=== PATIENT | male | born 1975 | race Caucasian/White ===

== ENCOUNTER 2016-10-03 15:31 | Inpatient (IN) | payer BC, OTHER ==
[~2016-10-03] VITALS: Ht 188 cm; Wt 80.0 kg
[2016-10-03 15:36] VITALS: BP 124/73; PULSE 110; RESP 17; TEMP 99.4; O2SAT 98
[2016-10-03] MEDS ORDERED: SODIUM CHLOR 0.9% 1000 ML INJ 1,000 ML IV ONE (20:09)
[2016-10-03] MEDS ORDERED: KETOROLAC TROMETHAMINE 30 MG/ML (IVP) VIAL IV PUSH ONE (20:15)
--- NOTE | 2016-10-03 20:42 | RADRPT ---
EXAM DATE/TIME: 10/03/2016 20:23 [place] COMPARISON: No previous studies available for comparison. INDICATIONS : Short of breath. MEDICAL HISTORY : None. SURGICAL HISTORY : None. ENCOUNTER: Initial ACUITY: 1 week PAIN SCORE: 0/10 LOCATION: Bilateral chest FINDINGS: A single view of the chest demonstrates the lungs to be symmetrically aerated without evidence of mas s, infiltrate or effusion. The cardiomediastinal contours are unremarkable. Osseous structures are intact. There is mild S. shaped thoracolumbar curvature noted. CONCLUSION: No evidence of acute cardiopulmonary disease.Scoliosis. Lit Hall MD on October 03, 2016 at 20:40 Board Certified Radiologist. This report was verified electronically.
[2016-10-03] MEDS ORDERED: AMLO10TA2 PO (20:46)
[2016-10-03] MEDS ORDERED: TRAM50TA PO (20:46)
[2016-10-03] MEDS ORDERED: LISI10TA3 PO (20:46)
[2016-10-03] MEDS ORDERED: AZIT500T2 PO (20:47)
[2016-10-03 21:21] LABS: HEMATOCRIT 38.7 % (39.0-51.0); MEAN CELL VOLUME 92.5 FL (80.0-100.0); MEAN CORPUSCULAR HEMOGLOBIN 31.2 PG (27.0-34.0); MEAN CORPUSCULAR HGB CONC 33.7 % (32.0-36.0); PLATELET COUNT 105 TH/MM3 (150-450); RED BLOOD COUNT 4.18 MIL/MM3 (4.50-5.90); RED CELL DISTRIBUTION WIDTH 13.5 % (11.6-17.2); WHITE BLOOD COUNT 8.1 TH/MM3 (4.0-11.0)
[2016-10-03 21:25] LABS: HEMO FLAGS AUTO DIFF
[2016-10-03 21:33] LABS: ANION GAP 10 MEQ/L (5-15); AST (GOT) 170 U/L (15-37); BICARBONATE 24.5 MEQ/L (21.0-32.0); BLOOD UREA NITROGEN 32 MG/DL (7-18); CHLORIDE 94 MEQ/L (98-107); GLOMERULAR FILTRATION RATE 22 ML/MIN (>89); POTASSIUM 3.3 MEQ/L (3.5-5.1); SODIUM (NA) 128 MEQ/L (136-145)
[2016-10-03 21:35] LABS: ALT (GPT) 187 U/L (12-78)
[2016-10-03 21:36] LABS: ALKALINE PHOSPHATASE 210 U/L (45-117); TOTAL BILIRUBIN ADULT 0.8 MG/DL (0.2-1.0)
[2016-10-03] MEDS ORDERED: SODIUM CHLOR 0.9% 1000 ML INJ 1,000 ML IV SCH (21:41)
[2016-10-03 21:43] LABS: BLOOD, URINE SMALL (NEG); GLUCOSE,URINE NEG (NEG); KETONE, URINE NEG (NEG); NITRITE,URINE NEG (NEG); PH, URINE 5.5 (5.0-8.5); URINE COLOR YELLOW (YELLW/STRAW)
[2016-10-03 21:44] LABS: COMMENT (UR) CATH-CULT NOT IND; CULTURE IF INDICATED CATH CULTURE NOT IND
[2016-10-03 22:05] VITALS: BP 128/76; PULSE 100; RESP 18; O2SAT 97
[2016-10-03 22:14] LABS: BANDS 24 % (0-6); EOSINOPHILS 1 % (0-4); METAMYELOCYTES 1 % (0-1); NEUTROPHIL # MANUAL DIFF 6.6 TH/MM3 (1.8-7.7); POLYS (SEG NEUTROPHILS) 57 % (16-70); WBC DIFF SAMPLE 100
[2016-10-03 22:15] LABS: TOXIC GRANULATION 1+ (NORMAL)
[2016-10-03] MEDS ORDERED: SENNOSIDES 8.6 MG TAB PO PRN (22:15)
[2016-10-03] MEDS ORDERED: BISACODYL 10 MG SUPP RECTAL PRN (22:15)
[2016-10-03] MEDS ORDERED: LACTULOSE SYRUP 20 GM/30 ML CUP PO PRN (22:15)
[2016-10-03] MEDS ORDERED: SODIUM CHLORIDE 0.9% FLUSH 10 ML FLUSH IV FLUSH PRN (22:15)
[2016-10-03] MEDS ORDERED: MAGNESIUM HYDROXIDE SUSP 30 ML CUP PO PRN (22:15)
[2016-10-03] MEDS ORDERED: MORPHINE SULFATE 4 MG/ML INJ IV PRN (22:15)
[2016-10-03] MEDS ORDERED: ONDANSETRON HCL 4 MG/2 ML VIAL IVP PRN (22:15)
[2016-10-03 22:16] LABS: DOHLE BODIES PRESENT (NONE SEEN)
--- NOTE | 2016-10-03 22:16 | HHI.HP ---
HPI Service [facility] Primary Care Physician Albert Pittman, DO Admission Diagnosis acute kidney failure, elevated LFTs, viral illness Diagnoses: (1) SIRS (systemic inflammatory response syndrome) Diagnosis: Principal (2) Gastroenteritis Diagnosis: Principal (3) DALLIN (acute kidney injury) Diagnosis: Principal (4) Thrombocytopenia Diagnosis: Principal (5) Elevated LFTs Diagnosis: Principal Travel History International Travel<30 Days: No Contact w/Intl Traveler <30 Da: No Traveled to Known Affected Are: No History of Present Illness This is a 40-year-old male with PMH of HTN who presented to the ER with complaints of fever and intermittent nausea, vomiting and diarrhea for approx 6 days. States he went on a family trip to [facility] 2wks ago, returned home feeling fine however 8 days after arrival had sudden onset of episodic fever, states fever occurring every 5-6hrs despite taking Tylenol. Reports night sweats. Few episodes of nausea/vomiting at start of symptoms, now resolved. Reports multiple episodes of small amount of diarrhea per day, non-bloody. Decreased PO intake. Of note, family member who went to [facility] with him currently hospitalized in [place] for similar symptoms. On arrival, BP 124/73, HR 110, O2 sat 98% on RA, Temp 99.4. WBC 8.1. Hemoglobin 13. Platelet 105, bandemia 24%. K+ 3.3. Creatinine 3.16, no previous labs for comparison. Lactic Acid 1.1. AST 170, ALT 187, ALP 210. Lipase 71. UA negative for UTI. CXR with no acute findings. S/p Blood/Stool Cultures in ER. Review of Systems Except as stated in HPI: all other systems reviewed are Neg ROS: 14 point review of systems otherwise negative. Past Family Social History Past Medical History PMH: HTN Past Surgical History PAST SURGICAL HISTORY: None Allergies: Coded Allergies: amoxicillin (Unverified Allergy, Mild, Hives, 10/03/16) Family History PAST FAMILY HISTORY: Reviewed. No h/o DM or CAD Social History PAST SOCIAL HISTORY: Negative frock all, tobacco or drugs. Physical Exam Vital Signs Vital Signs Date Time Temp Pulse Resp B/P (MAP) Pulse Ox O2 Delivery O2 Flow Rate FiO2 10/03/16 15:36 99.4 110 17 124/73 (90) 98 Physical Exam PE: GENERAL: Very pleasant young white male in no acute distress. at bedside. HEENT: PERRLA, EOMI. No scleral icterus or conjunctival pallor. No lid lag or facial droop. CARDIOVASCULAR: Regular rate and rhythm. No obvious murmurs to auscultation. No chest tenderness to palpation. RESPIRATORY: No obvious rhonchi or wheezing. Clear to auscultation. Breath sounds equal bilaterally. GASTROINTESTINAL: Abdomen soft, non-tender, nondistended. BS normal. MUSCULOSKELETAL: Extremities without clubbing, cyanosis, or edema. No obvious deformities. NEUROLOGICAL: Awake, alert and oriented x4. No focal neurologic deficits. Moving both upper and lower extremities spontaneously. Laboratory Laboratory Tests Test 10/03/16 21:01 10/03/16 21:20 White Blood Count 8.1 Red Blood Count 4.18 Hemoglobin 13.0 Hematocrit 38.7 Mean Corpuscular Volume 92.5 Mean Corpuscular Hemoglobin 31.2 Mean Corpuscular Hemoglobin Concent 33.7 Red Cell Distribution Width 13.5 Platelet Count 105 Mean Platelet Volume 8.7 CBC Comment AUTO DIFF Blood Urea Nitrogen 32 Creatinine 3.16 Random Glucose 131 Total Protein 7.1 Albumin 2.8 Calcium Level 8.3 Alkaline Phosphatase 210 Aspartate Amino Transf (AST/SGOT) 170 Alanine Aminotransferase (ALT/SGPT) 187 Total Bilirubin 0.8 Sodium Level 128 Potassium Level 3.3 Chloride Level 94 Carbon Dioxide Level 24.5 Anion Gap 10 Estimat Glomerular Filtration Rate 22 Lactic Acid Level 1.1 Lipase 71 Urine Color YELLOW Urine Turbidity CLOUDY Urine pH 5.5 Urine Specific [place] 1.013 Urine Protein 100 Urine Glucose (UA) NEG Urine Ketones NEG Urine Occult Blood SMALL Urine Nitrite NEG Urine Bilirubin NEG Urine Urobilinogen LESS THAN 2.0 Urine Leukocyte Esterase NEG Urine RBC 1 Urine WBC 6 Urine Amorphous Sediment RARE Microscopic Urinalysis Comment CATH-CULT NOT IND Date/Time Source Procedure Growth Status 10/03/16 21:01 Blood Peripheral Aerobic Blood Culture Pending Received 10/03/16 21:01 Blood Peripheral Anaerobic Blood Culture Pending Received 10/03/16 22:00 Stool Stool Acid Fast Stain Pending Received 10/03/16 22:00 Stool Stool Mycobacterial Culture Pending Received 10/03/16 21:01 Nasal Washing Influenza Types A,B Antigen (DESEAN) - Final NEGATIVE FOR FLU A AND B ANTIGEN.... Complete Result Diagram: 10/03/16210010/03/162100 [facility] VTE Risk Assessment: No/Low Risk (score <= 1) [facility] Model Point Value = 1 Point Value = 2 Point Value = 3 Point Value = 5 Age 41-60 Minor surgery BMI > 25 kg/m2 Swollen legs Varicose veins or History of unexplained or recurrent spontaneous Oral contraceptives or hormone replacement Sepsis (< 1 month) Serious lung disease, including pneumonia (< 1 month) Abnormal pulmonary function Acute myocardial infarction Congestive heart failure (< 1 month) History of inflammatory bowel disease Medical patient at bed rest Age 61-74 Arthroscopic surgery Major open surgery (> 45 min) Laparoscopic surgery (> 45 min) Malignancy Confined to bed (> 72 hours) Immobilizing plaster cast Central venous access Age >= 75 History of VTE Family history of VTE Factor V Leiden Prothrombin [id number] Lupus anticoagulant Anticardiolipin antibodies Elevated serum homocysteine Heparin-induced thrombocytopenia Other congenital or acquired thrombophilia Stroke (< 1 month) Elective arthroplasty Hip, pelvis, or leg fracture Acute spinal cord injury (< 1 month) Prophylaxis Regimen Total Risk Factor Score Risk Level Prophylaxis Regimen 0-1 Low Early ambulation 2 Moderate Order ONE of the following: *Sequential Compression Device (SCD) *Heparin 5000 units SQ BID 3-4 Higher Order ONE of the following medications: *Heparin 5000 units SQ TID *Enoxaparin/Lovenox 40 mg SQ daily (WT < 150 kg, CrCl > 30 mL/min) *Enoxaparin/Lovenox 30 mg SQ daily (WT < 150 kg, CrCl > 10-29 mL/min) *Enoxaparin/Lovenox 30 mg SQ BID (WT < 150 kg, CrCl > 30 mL/min) AND/OR *Sequential Compression Device (SCD) 5 or more Highest Order ONE of the following medications: *Heparin 5000 units SQ TID (Preferred with Epidurals) *Enoxaparin/Lovenox 40 mg SQ daily (WT < 150 kg, CrCl > 30 mL/min) *Enoxaparin/Lovenox 30 mg SQ daily (WT < 150 kg, CrCl > 10-29 mL/min) *Enoxaparin/Lovenox 30 mg SQ BID (WT < 150 kg, CrCl > 30 mL/min) AND *Sequential Compression Device (SCD) Assessment and Plan Problem List: (1) SIRS (systemic inflammatory response syndrome) ICD Code: R65.10 - Systemic inflammatory response syndrome (SIRS) of non- infectious origin without acute organ dysfunction (2) Gastroenteritis ICD Code: K52.9 - Noninfective gastroenteritis and colitis, unspecified (3) DALLIN (acute kidney injury) ICD Code: N17.9 - Acute kidney failure, unspecified (4) Thrombocytopenia ICD Code: D69.6 - Thrombocytopenia, unspecified (5) Elevated LFTs ICD Code: R79.89 - Other specified abnormal findings of blood chemistry Status: Acute Assessment and Plan A/P: 1. SIRS: Fever at home up to 103.0, Temp 99.4, HR 110, WBC normal however significant bandemia 24%, Source-Unclear, Gastroenteritis?. S/p Blood/Stool Cultures. Start on empiric tx w/ Cipro/Flagyl IV. Recent travel to [facility] , family member hospitalized in [place] for similar symptoms. ID Consult placed by ER physician. 2. Gastroenteritis: c/o few episodes nausea/vomiting and daily non-bloody diarrhea x1 wk, +fever, in light of ongoing symptoms and significant bandemia, will start on empiric treatment w/ IV Cipro/Flagyl as above. Obtain CT Abd/ Pelvis if no improvement, abdomen benign on exam 3. DALLIN: Creatinine 3.16, no previous labs for comparison, presumably new. U/ a negative, IVF for hydration, repeat labs in am. 4. Thrombocytopenia: Platelets 105, no previous labs, presumably new. ?ITP. No active bleeding. Will monitor closely, repeat labs in am. 5. Elevated LFTs: Mild. AST 170, ALT 187, ALP 210, check Hepatitis Profile. Repeat labs for trend. 6. DVT Prophylaxis: SCD/Teds. 7. Social work for d/c planning as needed. 8. Case discussed w/ ER physician at length. Physician Certification 2 Midnight Certification Type: Admission for Inpatient Services Order for Inpatient Services The services are ordered in accordance with Medicare regulations or non- Medicare payer requirements, as applicable. In the case of services not specified as inpatient-only, they are appropriately provided as inpatient services in accordance with the 2-midnight benchmark. Estimated LOS (days): 2 days is the estimated time the patient will need to remain in the hospital, assuming treatment plan goals are met and no additional complications. Post-Hospital Plan: Not yet determined Juju Fulton MD Oct 03, 2016 22:15
[2016-10-03 22:17] LABS: TOXIC VACUOLATION PRESENT (NONE SEEN)
[2016-10-03 22:18] LABS: PLATELET ESTIMATE SMEAR LOW (NORMAL); PLATELET MORPHOLOGY NORMAL (NORMAL)
[2016-10-03 22:20] LABS: SCAN/DIFF FINAL DIFF MANUAL
--- NOTE | 2016-10-03 22:20 | PD ---
HPI Chief Complaint: Fever Time Seen by Provider: 20:00 Travel History International Travel<30 days: No Contact w/Intl Traveler<30days: No Traveled to known affect area: No History of Present Illness HPI 40-year-old male that presents to the ED for evaluation of fever for the past 6 days. Per patient he is had this fever for about 6 days. Per patient he recently came back from [facility] about 2 weeks ago. Per patient she's been having diarrhea as well as fevers with body aches and some congestion and sore throat. Per patient he has to take her medication every 3 hours to help with the fever on the body aches otherwise he gets really bad body aches. Per patient he has no neck pain. Mild cough. Per patient and there is a friend that also went to [facility] that was just admitted a day ago to another hospital in [place] for evaluation of what he describes as the similar symptoms. He denies being in contact with anybody sick. He denies any other medical issue. Per patient he takes no medications other than azithromycin which was prescribed by his doctor a couple days ago when he went to see him. He was told that he likely had a viral illness and was given azithromycin to cover for bacterial illness. Allergy to amoxicillin. States that the bowel movements are liquidy but he states that he also has no appetite so he states that his bowel movements have been less and less. Per patient his stools have been very small. He denies any chest pain or shortness of breath. No other medical issues reported. PFSH Social History Tobacco Use: No Substance Use: No Allergies-Medications (Allergen,Severity, Reaction): Coded Allergies: amoxicillin (Unverified Allergy, Mild, Hives, 10/03/16) Reported Meds & Prescriptions Reported Meds & Active Scripts Active Reported Azithromycin 500 Mg Tab 500 Mg PO DAILY Amlodipine (Amlodipine Besylate) 10 Mg Tab 10 Mg PO DAILY Lisinopril 10 Mg Tab 10 Mg PO DAILY Tramadol (Tramadol HCl) 50 Mg Tab 50 Mg PO Q8H PRN Review of Systems Except as stated in HPI: all other systems reviewed are Neg Physical Exam Narrative GENERAL: SKIN: Warm and dry. HEAD: Atraumatic. Normocephalic. EYES: Pupils equal and round. No scleral icterus. No injection or drainage. ENT: No nasal bleeding or discharge. Mucous membranes pink and moist. Tongue is midline. No uvula deviation. TMs are clear with no sign of infection or perforation. No lymphadenopathy noted. No meningeal signs noted. No sinus tenderness noted. NECK: Trachea midline. No JVD. CARDIOVASCULAR: Tachycardic rate and rhythm. No murmurs, S3, S4. RESPIRATORY: No accessory muscle use. Clear to auscultation. Breath sounds equal bilaterally. GASTROINTESTINAL: Abdomen soft, non-tender, nondistended. Hepatic and splenic margins not palpable. MUSCULOSKELETAL: Extremities without clubbing, cyanosis, or edema. No obvious deformities. Full range of motion of the upper and lower extremities bilaterally. 2+ pulses bilaterally. NEUROLOGICAL: Awake and alert. No obvious cranial nerve deficits. Motor grossly within normal limits. Five out of 5 muscle strength in the arms and legs. Normal speech. PSYCHIATRIC: Appropriate mood and affect; insight and judgment normal. Data Data Last Documented VS Vital Signs Date Time Temp Pulse Resp B/P (MAP) Pulse Ox O2 Delivery O2 Flow Rate FiO2 10/03/16 15:36 99.4 110 17 124/73 (90) 98 Orders Orders Complete Blood Count With Diff (10/03/16 20:09) Comprehensive Metabolic Panel (10/03/16 20:09) Lactic Acid Sepsis Protocol (10/03/16 20:09) Lipase (10/03/16 20:09) Urinalysis - C+S If Indicated (10/03/16 20:09) Influenzae A/B Antigen (10/03/16 20:09) Blood Culture (10/03/16 20:09) Chest, Single Ap (10/03/16 20:09) Ecg Monitoring (10/03/16 20:09) Iv Access Insert/Monitor (10/03/16 20:09) Sodium Chlor 0.9% 1000 Ml Inj (Ns 1000 M (10/03/16 20:09) Stool Afb Culture And Stain (10/03/16 20:09) Ketorolac Inj (Toradol Inj) (10/03/16 20:15) Stool Ova And Parasite Screen (10/03/16 21:41) Sodium Chlor 0.9% 1000 Ml Inj (Ns 1000 M (10/03/16 21:41) Admit Order (Ed Use Only) (10/03/16 22:10) Labs Laboratory Tests Test 10/03/16 21:01 10/03/16 21:20 White Blood Count 8.1 TH/MM3 Red Blood Count 4.18 MIL/MM3 Hemoglobin 13.0 GM/DL Hematocrit 38.7 % Mean Corpuscular Volume 92.5 FL Mean Corpuscular Hemoglobin 31.2 PG Mean Corpuscular Hemoglobin Concent 33.7 % Red Cell Distribution Width 13.5 % Platelet Count 105 TH/MM3 Mean Platelet Volume 8.7 FL CBC Comment AUTO DIFF Blood Urea Nitrogen 32 MG/DL Creatinine 3.16 MG/DL Random Glucose 131 MG/DL Total Protein 7.1 GM/DL Albumin 2.8 GM/DL Calcium Level 8.3 MG/DL Alkaline Phosphatase 210 U/L Aspartate Amino Transf (AST/SGOT) 170 U/L Alanine Aminotransferase (ALT/SGPT) 187 U/L Total Bilirubin 0.8 MG/DL Sodium Level 128 MEQ/L Potassium Level 3.3 MEQ/L Chloride Level 94 MEQ/L Carbon Dioxide Level 24.5 MEQ/L Anion Gap 10 MEQ/L Estimat Glomerular Filtration Rate 22 ML/MIN Lactic Acid Level 1.1 mmol/L Lipase 71 U/L Urine Color YELLOW Urine Turbidity CLOUDY Urine pH 5.5 Urine Specific [place] 1.013 Urine Protein 100 mg/dL Urine Glucose (UA) NEG mg/dL Urine Ketones NEG mg/dL Urine Occult Blood SMALL Urine Nitrite NEG Urine Bilirubin NEG Urine Urobilinogen LESS THAN 2.0 MG/DL Urine Leukocyte Esterase NEG Urine RBC 1 /hpf Urine WBC 6 /hpf Urine Amorphous Sediment RARE Microscopic Urinalysis Comment CATH-CULT NOT IND MDM Medical Decision Making Medical Screen Exam Complete: Yes Emergency Medical Condition: Yes Medical Record Reviewed: Yes Interpretation(s) CBC & BMP Diagram 10/03/16 21:01 Total Protein 7.1, Albumin 2.8 L, Calcium Level 8.3 L, Alkaline Phosphatase 210 H, Aspartate Amino Transf (AST/SGOT) 170 H, Alanine Aminotransferase (ALT/SGPT) 187 H, Total Bilirubin 0.8 lactic acid within normal limits. UA were essentially unremarkable. CXR negative Differential Diagnosis Fever versus tropical illness versus hepatitis versus see Versus dengue versus kidney injury versus dehydration versus viral illness versus bacterial illness versus pneumonia Narrative Course 40-year-old male that presents to the ED for evaluation of fever for 6 days. Patient was properly examined and was found to have signs and symptoms of unclear etiology. Likely viral illness. Labs were drawn. Chest x-ray was done. Flu test was done. Labs came back showing what appears to be acute kidney failure with elevated LFTs. WBCs actually within normal limits with no left shift. She does state having diarrhea and stool studies are still pending. We'll test was negative. Case was discussed in my attending Dr. Sanchez who recommends admission for the acute kidney failure. Case was discussed with Dr. Fulton who agrees to admission. Patient was given 2 L of fluid by me. I put a consult to ID as patient will require further testing to evaluate cause of the fever so suspect this might be a tropical illness versus hepatitis Sepsis Criteria SIRS Criteria (2 or more): Heart rate over 90 Diagnosis Primary Impression: Acute kidney failure Qualified Codes: N17.9 - Acute kidney failure, unspecified Additional Impressions: Elevated LFTs Fever Qualified Codes: R50.9 - Fever, unspecified Admitting Information Admitting Physician Requests: Admit Emmanuel Mcclelland Oct 03, 2016 22:20
[2016-10-03] MEDS: SODIUM CHLOR 0.9% 1000 ML INJ 1,000 ML IV SCH (22:48)
[2016-10-03 23:00] VITALS: BP 118/70; PULSE 90; RESP 14; O2SAT 100
[2016-10-03] MEDS ORDERED: CIPROFLOXACIN 400 MG PREMIX 200 ML IV SCH (23:00)
[2016-10-04] VITALS (8 sets, daily range): BP systolic 109–151; BP diastolic 61–77; PULSE 88–112; RESP 16–18; TEMP 98.5–102.4; O2SAT 96–99
[2016-10-04] MEDS: metroNIDAZOLE 500 MG INJ 100 ML IV SCH ×4 (00:01→23:00)
[2016-10-04] MEDS: ACETAMINOPHEN 325 MG TAB PO PRN ×3 (01:59→13:40)
[2016-10-04] MEDS: ACETAMINOPHEN/HYDROcodone 325 MG/5 MG TAB PO PRN ×3 (02:01→21:24)
[2016-10-04] MEDS: DOCUSATE SODIUM 50 MG/SENNA 8.6 MG TAB PO SCH ×2 (08:24→21:24)
[2016-10-04] MEDS: SODIUM CHLORIDE 0.9% FLUSH 10 ML FLUSH IV FLUSH SCH ×2 (08:24→21:00)
[2016-10-04 08:52] LABS: AUTOMATED NEUTROPHIL # 5.8 TH/MM3 (1.8-7.7); BASOPHIL % 0.3 % (0.0-2.0); EOSINOPHIL % 0.7 % (0.0-4.0); HEMO FLAGS DIFF FINAL; LYMPH % 4.2 % (9.0-44.0); LYMPHOCYTE # 0.3 TH/MM3 (1.0-4.8); MEAN CELL VOLUME 94.8 FL (80.0-100.0); MEAN CORPUSCULAR HEMOGLOBIN 31.8 PG (27.0-34.0); MEAN CORPUSCULAR HGB CONC 33.5 % (32.0-36.0); MONO % 16.2 % (0.0-8.0); NEUT % 78.6 % (16.0-70.0); PLATELET COUNT 106 TH/MM3 (150-450); RED BLOOD COUNT 4.11 MIL/MM3 (4.50-5.90); RED CELL DISTRIBUTION WIDTH 13.4 % (11.6-17.2); WHITE BLOOD COUNT 7.4 TH/MM3 (4.0-11.0)
[2016-10-04 08:56] LABS: ALT (GPT) 192 U/L (12-78)
[2016-10-04 08:58] LABS: ALKALINE PHOSPHATASE 238 U/L (45-117); ANION GAP 11 MEQ/L (5-15); AST (GOT) 181 U/L (15-37); BICARBONATE 22.2 MEQ/L (21.0-32.0); CHLORIDE 99 MEQ/L (98-107); GLOMERULAR FILTRATION RATE 25 ML/MIN (>89); POTASSIUM 3.5 MEQ/L (3.5-5.1); SODIUM (NA) 132 MEQ/L (136-145); TOTAL BILIRUBIN ADULT 1.4 MG/DL (0.2-1.0)
[2016-10-04 09:05] LABS: BLOOD UREA NITROGEN 32 MG/DL (7-18)
--- NOTE | 2016-10-04 11:50 | HHI.PR ---
Subjective Remarks This is a 40-year-old male with PMH of HTN who presented to the ER with complaints of fever and intermittent nausea, vomiting and diarrhea for approx 6 days. States he went on a family trip to [facility] 2wks ago, returned home feeling fine however 8 days after arrival had sudden onset of episodic fever, states fever occurring every 5-6hrs despite taking Tylenol. Reports night sweats. Few episodes of nausea/vomiting at start of symptoms, now resolved. Reports multiple episodes of small amount of diarrhea per day, non-bloody. Decreased PO intake. Of note, family member who went to [facility] with him currently hospitalized in [place] for similar symptoms. On arrival, BP 124/73, HR 110, O2 sat 98% on RA, Temp 99.4. WBC 8.1. Hemoglobin 13. Platelet 105, bandemia 24%. K+ 3.3. Creatinine 3.16, no previous labs for comparison. Lactic Acid 1.1. AST 170, ALT 187, ALP 210. Lipase 71. UA negative for UTI. CXR with no acute findings. S/p Blood/Stool Cultures in ER. 10/04: Seen in his bedroom, slight decrease in Creatinine with IV fluids, asked for Renal Ultrasound and Nephrology specialist consult, discussed with ID specialist Doctor Denisse Moore she was concerned due to Thrombocytopenia and increased Liver enzymes, she discussed with manpower development specialist manager but considered to wait and follow Platelet count in am tomorrow, he continue with Diarrhea asked for C Diff and Stool for ova and parasites. Objective Vital Signs Date Time Temp Pulse Resp B/P (MAP) Pulse Ox O2 Delivery O2 Flow Rate FiO2 10/04/16 08:00 102.2 105 17 151/77 (101) 98 10/04/16 04:00 98.8 88 18 125/72 (89) 97 10/04/16 02:30 99.0 91 18 119/68 (85) 98 10/04/16 00:09 89 16 130/68 (88) 99 10/03/16 23:00 90 14 118/70 (86) 100 10/03/16 22:05 100 18 128/76 (93) 97 10/03/16 15:36 99.4 110 17 124/73 (90) 98 I/O 10/03/16 10/03/16 10/03/16 10/04/16 10/04/1610/04/17 06:59 14:59 22:59 06:59 14:59 22:59 Intake Total 1000 ml 1200 ml Balance 1000 ml 1200 ml Intake IV Total 1000 ml 1200 ml Result Diagram: 10/04/16 0600 10/04/16 0652 Imaging Last Impressions Chest X-Ray 10/03/162008 Signed Impressions: Service Date/Time: Monday, October 03, 2016 20:23 - CONCLUSION: No evidence of acute cardiopulmonary disease.Scoliosis. Lit Hall MD Procedures None Other Results Laboratory Tests Test 10/03/16 21:01 10/03/16 21:20 10/04/16 06:00 10/04/16 06:52 Differential Total Cells Counted 100 Neutrophils % (Manual) 57 % Band Neutrophils % 24 % Lymphocytes % 9 % Monocytes % 8 % Eosinophils % 1 % Neutrophils # (Manual) 6.6 TH/MM3 Metamyelocytes 1 % Toxic Granulation 1+ Toxic Vacuolation PRESENT Dohle Bodies PRESENT Platelet Estimate LOW Platelet Morphology Comment NORMAL Lactic Acid Level 1.1 mmol/L Lipase 71 U/L Urine Color YELLOW Urine Turbidity CLOUDY Urine pH 5.5 Urine Specific [place] 1.013 Urine Protein 100 mg/dL Urine Glucose (UA) NEG mg/dL Urine Ketones NEG mg/dL Urine Occult Blood SMALL Urine Nitrite NEG Urine Bilirubin NEG Urine Urobilinogen LESS THAN 2.0 MG/DL Urine Leukocyte Esterase NEG Urine RBC 1 /hpf Urine WBC 6 /hpf Urine Amorphous Sediment RARE Microscopic Urinalysis Comment CATH-CULT NOT IND White Blood Count 7.4 TH/MM3 Red Blood Count 4.11 MIL/MM3 Hemoglobin 13.1 GM/DL Hematocrit 39.0 % Mean Corpuscular Volume 94.8 FL Mean Corpuscular Hemoglobin 31.8 PG Mean Corpuscular Hemoglobin Concent 33.5 % Red Cell Distribution Width 13.4 % Platelet Count 106 TH/MM3 Mean Platelet Volume 10.2 FL Neutrophils (%) (Auto) 78.6 % Lymphocytes (%) (Auto) 4.2 % Monocytes (%) (Auto) 16.2 % Eosinophils (%) (Auto) 0.7 % Basophils (%) (Auto) 0.3 % Neutrophils # (Auto) 5.8 TH/MM3 Lymphocytes # (Auto) 0.3 TH/MM3 Monocytes # (Auto) 1.2 TH/MM3 Eosinophils # (Auto) 0.0 TH/MM3 Basophils # (Auto) 0.0 TH/MM3 CBC Comment DIFF FINAL Differential Comment Blood Urea Nitrogen 32 MG/DL Creatinine 2.88 MG/DL Random Glucose 100 MG/DL Total Protein 6.9 GM/DL Albumin 2.6 GM/DL Calcium Level 8.0 MG/DL Alkaline Phosphatase 238 U/L Aspartate Amino Transf (AST/SGOT) 181 U/L Alanine Aminotransferase (ALT/SGPT) 192 U/L Total Bilirubin 1.4 MG/DL Sodium Level 132 MEQ/L Potassium Level 3.5 MEQ/L Chloride Level 99 MEQ/L Carbon Dioxide Level 22.2 MEQ/L Anion Gap 11 MEQ/L Estimat Glomerular Filtration Rate 25 ML/MIN Test 10/04/16 11:24 Objective Remarks PE: No acute distress. GENERAL: Very pleasant young white male in no acute distress. at bedside. HEENT: PERRLA, EOMI. No scleral icterus or conjunctival pallor. No lid lag or facial droop. CARDIOVASCULAR: Regular rate and rhythm. No obvious murmurs to auscultation. No chest tenderness to palpation. RESPIRATORY: No obvious rhonchi or wheezing. Clear to auscultation. Breath sounds equal bilaterally. GASTROINTESTINAL: Abdomen soft, non-tender, nondistended. BS normal. MUSCULOSKELETAL: Extremities without clubbing, cyanosis, or edema. No obvious deformities. NEUROLOGICAL: Awake, alert and oriented x4. No focal neurologic deficits. Moving both upper and lower extremities spontaneously. Medications and IVs Current Medications Medications (Trade) Dose Ordered Sig/Néstor Route Start Time Stop Time Status Last Admin Ciprofloxacin/ Dextrose 200 ml @ 200 mls/hr Q24H IV 10/03/16 23:00 10/03/16 22:48 Metronidazole 100 ml @ 100 mls/hr Q8H IV 10/03/16 23:00 10/04/16 06:20 Sodium Chloride 1,000 ml @ 150 mls/hr Q6H40M IV 10/03/16 22:09 10/03/16 22:48 (NS Flush) 2 ml UNSCH PRN IV FLUSH 10/03/16 22:15 (NS Flush) 2 ml BID IV FLUSH 10/04/16 09:00 10/04/16 08:24 (Zofran Inj) 4 mg Q6H PRN IVP 10/03/16 22:15 (Tylenol) 650 mg Q6H PRN PO 10/03/16 22:15 10/04/16 08:24 ([place] 5-325 Mg) 1 tab Q4H PRN PO 10/03/16 22:15 10/04/16 02:01 (Morphine Inj) 2 mg Q3H PRN IV 10/03/16 22:15 (Gladys-Colace) 1 tab BID PO 10/04/16 09:00 (Milk Of Magnesia Liq) 30 ml Q12H PRN PO 10/03/16 22:15 (Senokot) 17.2 mg Q12H PRN PO 10/03/16 22:15 (Dulcolax Supp) 10 mg DAILY PRN RECTAL 10/03/16 22:15 (Lactulose Liq) 30 ml DAILY PRN PO 10/03/16 22:15 A/P Assessment and Plan 1. SIRS: Fever at home up to 103.0, Temp 99.4, HR 110, WBC normal however significant bandemia 24%, Source-Unclear, Gastroenteritis?. S/p Blood/Stool Cultures. Start on empiric tx w/ Cipro/Flagyl IV. Recent travel to [facility], family member hospitalized in [place] for similar symptoms. 2. DALLIN: Creatinine 3.16, Mild improvement with IV fluids, asked for Kidney Ultrasound and Nephrology consult. 3. Thrombocytopenia: Platelets 105, no previous labs, discussed by Doctor Moore with manpower development specialist manager not yet found the need for his intervention continuep resent care. 4. Elevated LFTs: Mildly worse today. DVT Prophylaxis: SCD/Teds. I had the pleasure to talk with Infectious Disease Specialist Doctor Denisse Moore for her Input and recommendations Highly appreciated. Discharge Planning Not yet cleared by specialists. Chong Burgos MD Oct 04, 2016 11:50
--- NOTE | 2016-10-04 15:25 | PD.CONS ---
HPI Service Nephrology Consult Requested By Dr. Ornelas Reason for Consult Acute renal failure Primary Care Physician Albert Pittman, DO History of Present Illness Patient is a 40-year-old male who had a recent trip to [facility] and developed diarrhea at first it was not too bad but then he developed nausea and vomiting and diarrhea with fever and came with these complaints, his creatinine was elevated 3.16 but has declined to 2.8 with hydration, he denies any previous kidney problems. His LFTs were abnormal platelet is slightly depressed. Review of Systems Constitutional: COMPLAINS OF: Fever, Night Sweats Gastrointestinal: COMPLAINS OF: Abdominal pain, Diarrhea, Nausea, Vomiting Past Family Social History Allergies: Coded Allergies: amoxicillin (Unverified Allergy, Mild, Hives, 10/03/16) Past Medical History He states that he has on and off diarrhea Hypertension Past Surgical History On exam Reported Medications Reported Meds & Active Scripts Active Reported Azithromycin 500 Mg Tab 500 Mg PO DAILY Amlodipine (Amlodipine Besylate) 10 Mg Tab 10 Mg PO DAILY Lisinopril 10 Mg Tab 10 Mg PO DAILY Tramadol (Tramadol HCl) 50 Mg Tab 50 Mg PO Q8H PRN Active Ordered Medications Current Medications Medications (Trade) Dose Ordered Sig/Néstor Route Start Time Stop Time Status Last Admin Ciprofloxacin/ Dextrose 200 ml @ 200 mls/hr Q24H IV 10/03/16 23:00 10/03/16 22:48 Metronidazole 100 ml @ 100 mls/hr Q8H IV 10/03/16 23:00 10/04/16 06:20 Sodium Chloride 1,000 ml @ 150 mls/hr Q6H40M IV 10/03/16 22:09 10/03/16 22:48 (NS Flush) 2 ml UNSCH PRN IV FLUSH 10/03/16 22:15 (NS Flush) 2 ml BID IV FLUSH 10/04/16 09:00 10/04/16 08:24 (Zofran Inj) 4 mg Q6H PRN IVP 10/03/16 22:15 (Tylenol) 650 mg Q6H PRN PO 10/03/16 22:15 10/04/16 13:40 ([place] 5-325 Mg) 1 tab Q4H PRN PO 10/03/16 22:15 10/04/16 02:01 (Morphine Inj) 2 mg Q3H PRN IV 10/03/16 22:15 (Gladys-Colace) 1 tab BID PO 10/04/16 09:00 (Milk Of Magnesia Liq) 30 ml Q12H PRN PO 10/03/16 22:15 (Senokot) 17.2 mg Q12H PRN PO 10/03/16 22:15 (Dulcolax Supp) 10 mg DAILY PRN RECTAL 10/03/16 22:15 (Lactulose Liq) 30 ml DAILY PRN PO 10/03/16 22:15 Family History Noncontributory Social History Denies smoking he drinks socially Physical Exam Vital Signs Vital Signs Date Time Temp Pulse Resp B/P (MAP) Pulse Ox O2 Delivery O2 Flow Rate FiO2 10/04/16 12:00 98.5 95 17 118/76 (90) 99 10/04/16 08:00 102.2 105 17 151/77 (101) 98 10/04/16 04:00 98.8 88 18 125/72 (89) 97 10/04/16 02:30 99.0 91 18 119/68 (85) 98 10/04/16 00:09 89 16 130/68 (88) 99 10/03/16 23:00 90 14 118/70 (86) 100 10/03/16 22:05 100 18 128/76 (93) 97 10/03/16 15:36 99.4 110 17 124/73 (90) 98 Physical Exam GENERAL: Well-nourished, well-developed patient. SKIN: Warm and dry. HEAD: Normocephalic. EYES: No scleral icterus. No injection or drainage. NECK: Supple, trachea midline. No JVD or lymphadenopathy. CARDIOVASCULAR: Regular rate and rhythm without murmurs, gallops, or rubs. RESPIRATORY: Breath sounds equal bilaterally. No accessory muscle use. GASTROINTESTINAL: Abdomen soft, non-tender, nondistended. EXTREMITIES: No cyanosis, or edema. NEUROLOGICAL: Awake, alert, and oriented x 3. Non-focal. Laboratory Laboratory Tests Test 10/03/16 21:01 10/03/16 21:20 10/04/16 06:00 10/04/16 06:52 White Blood Count 8.1 7.4 Red Blood Count 4.18 4.11 Hemoglobin 13.0 13.1 Hematocrit 38.7 39.0 Mean Corpuscular Volume 92.5 94.8 Mean Corpuscular Hemoglobin 31.2 31.8 Mean Corpuscular Hemoglobin Concent 33.7 33.5 Red Cell Distribution Width 13.5 13.4 Platelet Count 105 106 Mean Platelet Volume 8.7 10.2 CBC Comment AUTO DIFF DIFF FINAL Differential Total Cells Counted 100 Neutrophils % (Manual) 57 Band Neutrophils % 24 Lymphocytes % 9 Monocytes % 8 Eosinophils % 1 Neutrophils # (Manual) 6.6 Metamyelocytes 1 Differential Comment FINAL DIFF MANUAL Toxic Granulation 1+ Toxic Vacuolation PRESENT Dohle Bodies PRESENT Platelet Estimate LOW Platelet Morphology Comment NORMAL Blood Urea Nitrogen 32 32 Creatinine 3.16 2.88 Random Glucose 131 100 Total Protein 7.1 6.9 Albumin 2.8 2.6 Calcium Level 8.3 8.0 Alkaline Phosphatase 210 238 Aspartate Amino Transf (AST/SGOT) 170 181 Alanine Aminotransferase (ALT/SGPT) 187 192 Total Bilirubin 0.8 1.4 Sodium Level 128 132 Potassium Level 3.3 3.5 Chloride Level 94 99 Carbon Dioxide Level 24.5 22.2 Anion Gap 10 11 Estimat Glomerular Filtration Rate 22 25 Lactic Acid Level 1.1 Lipase 71 Urine Color YELLOW Urine Turbidity CLOUDY Urine pH 5.5 Urine Specific [place] 1.013 Urine Protein 100 Urine Glucose (UA) NEG Urine Ketones NEG Urine Occult Blood SMALL Urine Nitrite NEG Urine Bilirubin NEG Urine Urobilinogen LESS THAN 2.0 Urine Leukocyte Esterase NEG Urine RBC 1 Urine WBC 6 Urine Amorphous Sediment RARE Microscopic Urinalysis Comment CATH-CULT NOT IND Neutrophils (%) (Auto) 78.6 Lymphocytes (%) (Auto) 4.2 Monocytes (%) (Auto) 16.2 Eosinophils (%) (Auto) 0.7 Basophils (%) (Auto) 0.3 Neutrophils # (Auto) 5.8 Lymphocytes # (Auto) 0.3 Monocytes # (Auto) 1.2 Eosinophils # (Auto) 0.0 Basophils # (Auto) 0.0 Test 10/04/16 11:24 10/04/16 13:00 Date/Time Source Procedure Growth Status 10/03/16 21:01 Blood Peripheral Aerobic Blood Culture - Preliminary NO GROWTH IN 1 DAY Resulted 10/03/16 21:01 Blood Peripheral Anaerobic Blood Culture - Preliminary NO GROWTH IN 1 DAY Resulted 10/04/16 13:00 Stool Stool Cyclospora Exam Pending Received 10/04/16 13:00 Stool Stool Cryptosporidium Exam Pending Received 10/04/16 13:00 Stool Stool Stool Pus (DESEAN) Pending Received 10/04/16 13:00 Stool Stool Giardia Antigen (DEESAN) Pending Received 10/03/16 21:01 Nasal Washing Influenza Types A,B Antigen (DESEAN) - Final NEGATIVE FOR FLU A AND B ANTIGEN.... Complete 10/04/16 13:00 Urine Random Urine Legionella Antigen Pending Received Result Diagram: 10/04/16 0600 10/04/16 0652 Imaging Last Impressions Chest X-Ray 10/03/162008 Signed Impressions: Service Date/Time: Monday, October 03, 2016 20:23 - CONCLUSION: No evidence of acute cardiopulmonary disease.Scoliosis. Lit Hall MD Assessment and Plan Problem List: (1) DALLIN (acute kidney injury) ICD Codes: N17.9 - Acute kidney failure, unspecified Plan: He does not have any evidence of anemia or RBCs in the urine, this is likely prerenal dehydration which is responding to fluids his creatinine already has declined, I do not find evidence for hemolysis at this stage, moreover high grade fever points to infective etiology along with abnormal LFT, check reti counts, LDH, follow sedrate At this point observation Supportive care Look for infective etiology E coli, S. typhi, Hep A (2) Fever ICD Codes: R50.9 - Fever, unspecified Status: Acute Plan: Continue supportive care (3) Thrombocytopenia ICD Codes: D69.6 - Thrombocytopenia, unspecified Plan: Likely infective etiology (4) Elevated LFTs ICD Codes: R79.89 - Other specified abnormal findings of blood chemistry Status: Acute Plan: Hepatitis screen is pending Problem Qualifiers (1) Fever: Qualified Codes: R50.9 - Fever, unspecified Matias Medina MD Oct 04, 2016 15:25
[2016-10-04 15:39] LABS: C. DIFF EPI 027 PRESUMPTIVE NEGATIVE (NEGATIVE)
--- NOTE | 2016-10-04 16:33 | RADRPT ---
EXAM DATE/TIME: 10/04/2016 15:57 [facility] COMPARISON: No previous studies available for comparison. INDICATIONS : Increased lab values. MEDICAL HISTORY : Hypertension. Two herniated disks in lower back. SURGICAL HISTORY : None. ENCOUNTER: Initial ACUITY: 2 weeks PAIN SCORE: 1/10 LOCATION: Bilateral flank MEASUREMENTS: RIGHT KIDNEY: 12.9 x 6.1 x 6.1 cm LEFT KIDNEY: 12.2 x 6.0 x 6.0 cm FINDINGS: Incidental note of fatty infiltration of the liver. RIGHT KIDNEY: Renal cortex is normal in thickness and echotexture. No hydronephrosis, stone, or mass. LEFT KIDNEY: Renal cortex is normal in thickness and echotexture. No hydronephrosis, stone, or m ass. BLADDER: Within normal limits given the degree of distension. CONCLUSION: Fatty infiltration of the liver. Normal evaluation of the kidneys and bladder. Juliette Castillo MD on October 04, 2016 at 16:30 Board Certified Radiologist. This report was verified electronically.
--- NOTE | 2016-10-04 16:37 | PD.ID.CON ---
History of Present Illness Service ID Consult Requested By / residents. Reason for Consult Evaluation and Mment of Fever in a traveller with diarrhea, abnormal LFTs and Acute renal failure. Primary Care Physician Albert Pittman DO Diagnoses: History of Present Illness Mr. Canchola is a 40-year-old male with past medical history significant for hypertension, herniated disc who recently traveled to [facility] between September 11, 2016 and September 19, 2016. While in [facility] patient was involved in many outdoor activities such as surfing, exploring the mountains , exploring the trails, Swimming in the water pools below waterfalls. He denies any history of animal bites. He reports having seen some monkeys but was not exposed to any of them. He denies any history of travel into caves. Patient reports he went on a family trip to [facility] and there were several kids ranging in age from 7-17, and about 6-7 adults. Patient reports that approximately some at least 7-8 people from his vacation trip all of these are family members ended up having diarrhea. Diarrhea resolved for most of them. He additionally reports that one of the family members is currently admitted at one of the [facility]. He believes that the physician for that family member has informed him that patient could have dengue. The patient at other hospital does not have any renal or liver function abnormalities. He goes on to report his girl friend has fevers and possibly diarrhea now. With this background patient now presents to the emergency department with complaints of fever, diarrhea for approximately 7 days. He reports a history of high-grade fevers associated with chills and rigors and periods of sweating. He reports that after a period of prolonged sweating his fevers do resolve. He reports aggressively hydrating himself with 2-3 gallons of water but despite that his urine is very yellow and at times very dark-colored. He denies any blood in the urine or any tea-colored urine. He reports taking Tylenol regularly. Patient reports about 7-8 times small amounts of diarrhea with no blood no tenesmus. He reports aches and pains as well as myalgia but denies any bone pain. He reports night sweats. He reports one episode where he had nausea and vomiting this was approximately one week back. He reports decreased appetite altered taste in the mouth. Denies any loss of weight. On arrival, BP 124/73, HR 110, O2 sat 98% on RA, Temp 99.4. WBC 8.1. Hemoglobin 13. Platelet 105, bandemia 24%. K+ 3.3. Creatinine 3.16, no previous labs for comparison. Lactic Acid 1.1. AST 170, ALT 187, ALP 210. Lipase 71. UA negative for UTI. CXR with no acute findings. S/p Blood/Stool Cultures in ER. At the time of my evaluation patient is currently on the floor. He had taken his shirt/top off because he had a profuse sweating episode a few minutes back. Otherwise patient appeared to be in no cardiopulmonary distress denied any pains. He did report periods of myalgia and high-grade fevers.He denies any bone pains. He denies any headache, retro-orbital pain or neck pain. Urine output is good. He continues to have large volume diarrhea. Travel: None in last 5 yrs prior to [facility] most recently. Medication use prior to admission: Tylenol 4-5 gm per day for 6 days. Dayquil 4 times a day for few days (Tylenol, Phenylephrine, Dextromethorphan) Pets: 2 dogs and 2 cats No yellow fever or other vaccines for [facility]. No typhoid vaccine or any other prophylaxis. Review of Systems Constitutional: COMPLAINS OF: Diaphoretic episodes, Fatigue, Fever, Chills, Change in appetite, Night Sweats Endocrine: DENIES: Heat/cold intolerance, Polydipsia, Polyuria, Polyphagia Eyes: DENIES: Blurred vision, Diplopia, Eye inflammation, Eye pain, Vision loss , Photosensitivity, Double Vision Ears, nose, mouth, throat: DENIES: Tinnitus, Hearing loss, Vertigo, Nasal discharge, Oral lesions, Throat pain, Hoarseness, Ear Pain, Running Nose, Epistaxis, Sinus Pain, Toothache, Odynophagia Respiratory: DENIES: Apneas, Cough, Snoring, Wheezing, Hemoptysis, Sputum production, Shortness of breath Cardiovascular: DENIES: Chest pain, Palpitations, Syncope, Dyspnea on Exertion , PND, Lower Extremity Edema, Orthopnea, Claudication Gastrointestinal: COMPLAINS OF: Diarrhea, Nausea, Vomiting, DENIES: Abdominal pain, Black stools, Bloody stools, Constipation, Difficulty Swallowing, Anorexia Genitourinary: DENIES: Sexual dysfunction, Urinary frequency, Urinary incontinence, Urgency, Hematuria, Dysuria, Nocturia, Penile Discharge, Testicular Pain, Testicular Swelling Musculoskeletal: COMPLAINS OF: Muscle aches, DENIES: Joint pain, Stiffness, Joint Swelling, Back pain, Neck pain Integumentary: DENIES: Abnormal pigmentation, Nail changes, Pruritus, Rash Hematologic/lymphatic: DENIES: Bruising, Lymphadenopathy Immunologic/allergic: DENIES: Eczema, Urticaria Neurologic: DENIES: Abnormal gait, Headache, Localized weakness, Paresthesias, Seizures, Speech Problems, Tremor, Poor Balance Psychiatric: DENIES: Anxiety, Confusion, Mood changes, Depression, Hallucinations, Agitation, Suicidal Ideation, Homicidal Ideation, Delusions Except as stated in HPI: all other systems reviewed are Neg Past Family Social History Allergies: Coded Allergies: amoxicillin (Unverified Allergy, Mild, Hives, 10/03/16) Past Medical History HTN Herniated disc Past Surgical History None per patient Reported Medications Reported Meds & Active Scripts Active Reported Azithromycin 500 Mg Tab 500 Mg PO DAILY Amlodipine (Amlodipine Besylate) 10 Mg Tab 10 Mg PO DAILY Lisinopril 10 Mg Tab 10 Mg PO DAILY Tramadol (Tramadol HCl) 50 Mg Tab 50 Mg PO Q8H PRN Active Ordered Medications Current Medications Medications (Trade) Dose Ordered Sig/Néstor Route Start Time Stop Time Status Last Admin Metronidazole 100 ml @ 100 mls/hr Q8H IV 10/03/16 23:00 10/04/16 15:46 Sodium Chloride 1,000 ml @ 150 mls/hr Q6H40M IV 10/03/16 22:09 10/03/16 22:48 (NS Flush) 2 ml UNSCH PRN IV FLUSH 10/03/16 22:15 (NS Flush) 2 ml BID IV FLUSH 10/04/16 09:00 10/04/16 08:24 (Zofran Inj) 4 mg Q6H PRN IVP 10/03/16 22:15 (Tylenol) 650 mg Q6H PRN PO 10/03/16 22:15 10/04/16 13:40 ([place] 5-325 Mg) 1 tab Q4H PRN PO 10/03/16 22:15 10/04/16 15:45 (Morphine Inj) 2 mg Q3H PRN IV 10/03/16 22:15 (Gladys-Colace) 1 tab BID PO 10/04/16 09:00 (Milk Of Magnesia Liq) 30 ml Q12H PRN PO 10/03/16 22:15 (Senokot) 17.2 mg Q12H PRN PO 10/03/16 22:15 (Dulcolax Supp) 10 mg DAILY PRN RECTAL 10/03/16 22:15 (Lactulose Liq) 30 ml DAILY PRN PO 10/03/16 22:15 Levofloxacin/ Dextrose 100 ml @ 100 mls/hr Q24H IV 10/04/16 15:45 UNV (Vibramycin) 100 mg BID PO 10/04/16 21:00 UNV Family History Noncontributory to current illness Social History Drinks up to 3 glasses of red wine and occasionally over the weekend a couple of beers. No smoking No drugs Has a girlfriend who is with him for the last 2.5 years. Physical Exam Vital Signs Vital Signs Date Time Temp Pulse Resp B/P (MAP) Pulse Ox O2 Delivery O2 Flow Rate FiO2 10/04/16 16:00 101.1 112 17 113/61 (78) 96 10/04/16 12:00 98.5 95 17 118/76 (90) 99 10/04/16 08:00 102.2 105 17 151/77 (101) 98 10/04/16 04:00 98.8 88 18 125/72 (89) 97 10/04/16 02:30 99.0 91 18 119/68 (85) 98 10/04/16 00:09 89 16 130/68 (88) 99 10/03/16 23:00 90 14 118/70 (86) 100 10/03/16 22:05 100 18 128/76 (93) 97 Physical Exam GENERAL: This is a well-nourished, well-developed patient, in no apparent distress. SKIN: No rashes, ecchymoses or lesions. Cool and dry. HEAD: Atraumatic. Normocephalic. No temporal or scalp tenderness. EYES: Pupils equal round and reactive. Extraocular motions intact. No scleral icterus. No injection or drainage. ENT: Nose without bleeding, purulent drainage or septal hematoma. Throat without erythema, tonsillar hypertrophy or exudate. Uvula midline. Airway patent. NECK: Trachea midline. No JVD or lymphadenopathy. Supple, nontender, no meningeal signs. CARDIOVASCULAR: Regular rate and rhythm without murmurs, gallops, or rubs. RESPIRATORY: Clear to auscultation. Breath sounds equal bilaterally. No wheezes , rales, or rhonchi. GASTROINTESTINAL: Abdomen soft, non-tender, nondistended. RUQ tenderness on palpation. MUSCULOSKELETAL: Extremities without clubbing, cyanosis, or edema. No joint tenderness, effusion, or edema noted. No calf tenderness. Negative Homans sign bilaterally. NEUROLOGICAL: Awake and alert. Cranial nerves II through XII intact. Motor and sensory grossly within normal limits. Five out of 5 muscle strength in all muscle groups. Normal speech. Psych: pleasant IV line sites with no e.o infection. Laboratory Laboratory Tests Test 10/03/16 21:01 10/03/16 21:20 10/04/16 06:00 10/04/16 06:52 White Blood Count 8.1 7.4 Red Blood Count 4.18 4.11 Hemoglobin 13.0 13.1 Hematocrit 38.7 39.0 Mean Corpuscular Volume 92.5 94.8 Mean Corpuscular Hemoglobin 31.2 31.8 Mean Corpuscular Hemoglobin Concent 33.7 33.5 Red Cell Distribution Width 13.5 13.4 Platelet Count 105 106 Mean Platelet Volume 8.7 10.2 CBC Comment AUTO DIFF DIFF FINAL Differential Total Cells Counted 100 Neutrophils % (Manual) 57 Band Neutrophils % 24 Lymphocytes % 9 Monocytes % 8 Eosinophils % 1 Neutrophils # (Manual) 6.6 Metamyelocytes 1 Differential Comment FINAL DIFF MANUAL Toxic Granulation 1+ Toxic Vacuolation PRESENT Dohle Bodies PRESENT Platelet Estimate LOW Platelet Morphology Comment NORMAL Blood Urea Nitrogen 32 32 Creatinine 3.16 2.88 Random Glucose 131 100 Total Protein 7.1 6.9 Albumin 2.8 2.6 Calcium Level 8.3 8.0 Alkaline Phosphatase 210 238 Aspartate Amino Transf (AST/SGOT) 170 181 Alanine Aminotransferase (ALT/SGPT) 187 192 Total Bilirubin 0.8 1.4 Sodium Level 128 132 Potassium Level 3.3 3.5 Chloride Level 94 99 Carbon Dioxide Level 24.5 22.2 Anion Gap 10 11 Estimat Glomerular Filtration Rate 22 25 Lactic Acid Level 1.1 Lipase 71 Urine Color YELLOW Urine Turbidity CLOUDY Urine pH 5.5 Urine Specific [place] 1.013 Urine Protein 100 Urine Glucose (UA) NEG Urine Ketones NEG Urine Occult Blood SMALL Urine Nitrite NEG Urine Bilirubin NEG Urine Urobilinogen LESS THAN 2.0 Urine Leukocyte Esterase NEG Urine RBC 1 Urine WBC 6 Urine Amorphous Sediment RARE Microscopic Urinalysis Comment CATH-CULT NOT IND Neutrophils (%) (Auto) 78.6 Lymphocytes (%) (Auto) 4.2 Monocytes (%) (Auto) 16.2 Eosinophils (%) (Auto) 0.7 Basophils (%) (Auto) 0.3 Neutrophils # (Auto) 5.8 Lymphocytes # (Auto) 0.3 Monocytes # (Auto) 1.2 Eosinophils # (Auto) 0.0 Basophils # (Auto) 0.0 Test 10/04/16 11:24 10/04/16 13:00 Eosinophil Stool Smear NONE SEEN Stool C. difficile Toxin (PCR) NEGATIVE Stl C. difficile Toxin Epiderm 027 PRESUMPTIVE NEGATIVE Date/Time Source Procedure Growth Status 10/03/16 21:01 Blood Peripheral Aerobic Blood Culture - Preliminary NO GROWTH IN 1 DAY Resulted 10/03/16 21:01 Blood Peripheral Anaerobic Blood Culture - Preliminary NO GROWTH IN 1 DAY Resulted 10/04/16 13:00 Stool Stool Cyclospora Exam Pending Received 10/04/16 13:00 Stool Stool Cryptosporidium Exam Pending Received 10/04/16 13:00 Stool Stool Stool Pus (DESEAN) Pending Received 10/04/16 13:00 Stool Stool Giardia Antigen (DESEAN) Pending Received 10/03/16 21:01 Nasal Washing Influenza Types A,B Antigen (DESEAN) - Final NEGATIVE FOR FLU A AND B ANTIGEN.... Complete 10/04/16 13:00 Urine Random Urine Legionella Antigen Pending Received Result Diagram: 10/04/16 0600 10/04/16 0652 Imaging Last Impressions Renal Ultrasound 10/04/16 0000 Signed Impressions: Service Date/Time: Tuesday, October 04, 2016 15:57 - CONCLUSION: Fatty infiltration of the liver. Normal evaluation of the kidneys and bladder. Juliette Castillo MD Chest X-Ray 10/03/162008 Signed Impressions: Service Date/Time: Monday, October 03, 2016 20:23 - CONCLUSION: No evidence of acute cardiopulmonary disease.Scoliosis. Lit Hall MD Assessment and Plan Assessment and Plan SIRS possible Sepsis (fever, tachycardia) source: Infectious Diarrhea/ Enterocolitis. DDx: 1. Bacterial: Enteric pathogens (E.coli Enterotoxigenic, E.coli 0157. R/o HUS, Other pathogens like Shigella, Campylobacter, salmonella,etc). Legionnaire's disease. Leptospirosis. 2. Viral: Dengue, Yellow fever, Zika, acute HIV. 3. Parasites: Malaria. 4. Tick borne diseases: Rickettsial diseases (RMSF, RMNSF, Ehrlichiosis) Acute renal failure: Prerenal, Sepsis, as part of an infectious disease syndrome such as Lepto or Legionella Abnormal Liver function tests: Tylenol toxicity or as part of an ID syndrome. Hyponatremia: metabolic, as part of an ID syndrome (Legionella) Acute thrombocytopenia (in absence of anemia and schistocytes): less likely to be HUS/MAHA. May be as part of Infectious Disease Syndromes. Diarrhea: Travellers diarrhea or part of other ID syndromes. Recs Called Micro lab. To order Zika I had to call health dept number but could not reach hotline. Will attempt again in am. DC Cipro Start Levaquin (covers travellers diarrhea and Legionnaire's disease) Continue Flagyl ok to change to oral if no N/V. Start Doxy to assess response for Rickettsial diseases. Follow stool studies Check Hepatitis panel. Check Tylenol level (pt was taking tylenol for fevers frequently) Peripheral smear to be reviewed by pathologist. WnV testing. Legionella urine Ag and IgG and IgM (Hyponatremia, ARF, Abnormal LFTs r/o Legionnaire's disease) Cdiff tested and negative. Denisse Moore MD Oct 04, 2016 16:37
[2016-10-04] MEDS ORDERED: LEVOFLOXACIN 500 MG PREMIX INJ 100 ML IV ONE (18:00)
[2016-10-04] MEDS: SODIUM CHLOR 0.9% 1000 ML INJ 1,000 ML IV SCH ×2 (21:24→21:25)
[2016-10-04] MEDS: DOXYCYCLINE HYCLATE 100 MG CAP PO SCH (21:24)
[2016-10-05] VITALS: BP 134/69; PULSE 99; RESP 18; TEMP 99.7; O2SAT 97
[2016-10-05] MEDS: ACETAMINOPHEN 325 MG TAB PO PRN ×2 (00:07→16:14)
[2016-10-05] MEDS: SODIUM CHLOR 0.9% 1000 ML INJ 1,000 ML IV SCH ×5 (00:49→20:49)
[2016-10-05 04:00] VITALS: BP 137/81; PULSE 91; RESP 18; TEMP 98.3; O2SAT 97
[2016-10-05] MEDS: ACETAMINOPHEN/HYDROcodone 325 MG/5 MG TAB PO PRN ×4 (05:01→20:57)
[2016-10-05] MEDS: metroNIDAZOLE 500 MG INJ 100 ML IV SCH ×2 (06:16→14:18)
[2016-10-05 08:00] VITALS: BP 119/70; PULSE 99; RESP 16; TEMP 98.8; O2SAT 97
[2016-10-05] MEDS: DOXYCYCLINE HYCLATE 100 MG CAP PO SCH ×2 (08:53→21:00)
[2016-10-05] MEDS: SODIUM CHLORIDE 0.9% FLUSH 10 ML FLUSH IV FLUSH SCH ×2 (08:54→20:56)
[2016-10-05] MEDS: DOCUSATE SODIUM 50 MG/SENNA 8.6 MG TAB PO SCH ×2 (08:54→20:56)
--- NOTE | 2016-10-05 11:14 | HHI.PR ---
Subjective Remarks This is a 40-year-old male with PMH of HTN who presented to the ER with complaints of fever and intermittent nausea, vomiting and diarrhea for approx 6 days. States he went on a family trip to [facility] 2wks ago, returned home feeling fine however 8 days after arrival had sudden onset of episodic fever, states fever occurring every 5-6hrs despite taking Tylenol. Reports night sweats. Few episodes of nausea/vomiting at start of symptoms, now resolved. Reports multiple episodes of small amount of diarrhea per day, non-bloody. Decreased PO intake. Of note, family member who went to [facility] with him currently hospitalized in [place] for similar symptoms. On arrival, BP 124/73, HR 110, O2 sat 98% on RA, Temp 99.4. WBC 8.1. Hemoglobin 13. Platelet 105, bandemia 24%. K+ 3.3. Creatinine 3.16, no previous labs for comparison. Lactic Acid 1.1. AST 170, ALT 187, ALP 210. Lipase 71. UA negative for UTI. CXR with no acute findings. S/p Blood/Stool Cultures in ER. 10/04: Seen in his bedroom, slight decrease in Creatinine with IV fluids, asked for Renal Ultrasound and Nephrology specialist consult, discussed with ID specialist Doctor Denisse Moore she was concerned due to Thrombocytopenia and increased Liver enzymes, she discussed with instrument specialist but considered to wait and follow Platelet count in am tomorrow, he continue with Diarrhea asked for C Diff and Stool for ova and parasites. 10/05: Seen in the presence of his Mrs. Phillips, he is stable and improving on his renal function, had fever yesterday still not identified the Pathogen, but he is improving with supportive care. Nephrology and ID specialist following. Platelet count Improving. Objective Vital Signs Date Time Temp Pulse Resp B/P (MAP) Pulse Ox O2 Delivery O2 Flow Rate FiO2 10/05/16 08:00 98.8 99 16 119/70 (86) 97 10/05/16 04:00 98.3 91 18 137/81 (99) 97 10/05/16 00:00 99.7 99 18 134/69 (90) 97 10/04/16 23:29 104 10/04/16 20:00 102.4 106 18 109/70 (83) 97 10/04/16 16:00 101.1 112 17 113/61 (78) 96 10/04/16 12:00 98.5 95 17 118/76 (90) 99 I/O 10/04/16 10/04/16 10/04/16 10/05/16 10/05/16 10/05/16 07:00 15:00 23:00 07:00 15:00 23:00 Intake Total 1200 ml 340 ml 1000 ml Balance 1200 ml 340 ml 1000 ml Intake Oral 240 ml IV Total 1200 ml 100 ml 1000 ml # Voids 6 5 # Bowel Movements 2 Result Diagram: 10/04/16 0600 10/04/16 0652 Imaging Last Impressions Renal Ultrasound 10/04/16 0000 Signed Impressions: Service Date/Time: Tuesday, October 04, 2016 15:57 - CONCLUSION: Fatty infiltration of the liver. Normal evaluation of the kidneys and bladder. Juliette Castillo MD Chest X-Ray 10/03/162008 Signed Impressions: Service Date/Time: Monday, October 03, 2016 20:23 - CONCLUSION: No evidence of acute cardiopulmonary disease.Scoliosis. Lit Hall MD Procedures None Other Results Laboratory Tests Test 10/03/16 21:01 10/03/16 21:20 10/04/16 06:00 10/04/16 06:52 Differential Total Cells Counted 100 Neutrophils % (Manual) 57 % Band Neutrophils % 24 % Lymphocytes % 9 % Monocytes % 8 % Eosinophils % 1 % Neutrophils # (Manual) 6.6 TH/MM3 Metamyelocytes 1 % Toxic Granulation 1+ Toxic Vacuolation PRESENT Dohle Bodies PRESENT Platelet Estimate LOW Platelet Morphology Comment NORMAL Lactic Acid Level 1.1 mmol/L Lipase 71 U/L Urine Color YELLOW Urine Turbidity CLOUDY Urine pH 5.5 Urine Specific [place] 1.013 Urine Protein 100 mg/dL Urine Glucose (UA) NEG mg/dL Urine Ketones NEG mg/dL Urine Occult Blood SMALL Urine Nitrite NEG Urine Bilirubin NEG Urine Urobilinogen LESS THAN 2.0 MG/DL Urine Leukocyte Esterase NEG Urine RBC 1 /hpf Urine WBC 6 /hpf Urine Amorphous Sediment RARE Microscopic Urinalysis Comment CATH-CULT NOT IND White Blood Count 7.4 TH/MM3 Red Blood Count 4.11 MIL/MM3 Hemoglobin 13.1 GM/DL Hematocrit 39.0 % Mean Corpuscular Volume 94.8 FL Mean Corpuscular Hemoglobin 31.8 PG Mean Corpuscular Hemoglobin Concent 33.5 % Red Cell Distribution Width 13.4 % Platelet Count 106 TH/MM3 Mean Platelet Volume 10.2 FL Neutrophils (%) (Auto) 78.6 % Lymphocytes (%) (Auto) 4.2 % Monocytes (%) (Auto) 16.2 % Eosinophils (%) (Auto) 0.7 % Basophils (%) (Auto) 0.3 % Neutrophils # (Auto) 5.8 TH/MM3 Lymphocytes # (Auto) 0.3 TH/MM3 Monocytes # (Auto) 1.2 TH/MM3 Eosinophils # (Auto) 0.0 TH/MM3 Basophils # (Auto) 0.0 TH/MM3 CBC Comment DIFF FINAL Differential Comment Blood Smear Pathologist Review Blood Urea Nitrogen 32 MG/DL Creatinine 2.88 MG/DL Random Glucose 100 MG/DL Total Protein 6.9 GM/DL Albumin 2.6 GM/DL Calcium Level 8.0 MG/DL Alkaline Phosphatase 238 U/L Aspartate Amino Transf (AST/SGOT) 181 U/L Alanine Aminotransferase (ALT/SGPT) 192 U/L Total Bilirubin 1.4 MG/DL Sodium Level 132 MEQ/L Potassium Level 3.5 MEQ/L Chloride Level 99 MEQ/L Carbon Dioxide Level 22.2 MEQ/L Anion Gap 11 MEQ/L Estimat Glomerular Filtration Rate 25 ML/MIN Total Creatine Kinase 101 U/L Test 10/04/16 11:24 10/04/16 13:00 10/04/16 19:00 Eosinophil Stool Smear NONE SEEN /HPF Stool C. difficile Toxin (PCR) NEGATIVE Stl C. difficile Toxin Epiderm 027 PRESUMPTIVE NEGATIVE Acetaminophen Level LESS THAN 2.0 MCG/ML Objective Remarks PE: No acute distress. GENERAL: Very pleasant young white male in no acute distress. at bedside. HEENT: PERRLA, EOMI. No scleral icterus or conjunctival pallor. No lid lag or facial droop. CARDIOVASCULAR: Regular rate and rhythm. No obvious murmurs to auscultation. No chest tenderness to palpation. RESPIRATORY: No obvious rhonchi or wheezing. Clear to auscultation. Breath sounds equal bilaterally. GASTROINTESTINAL: Abdomen soft, non-tender, nondistended. BS normal. MUSCULOSKELETAL: Extremities without clubbing, cyanosis, or edema. No obvious deformities. NEUROLOGICAL: Awake, alert and oriented x4. No focal neurologic deficits. Moving both upper and lower extremities spontaneously. Medications and IVs Current Medications Medications (Trade) Dose Ordered Sig/Néstor Route Start Time Stop Time Status Last Admin Metronidazole 100 ml @ 100 mls/hr Q8H IV 10/03/16 23:00 10/05/16 06:16 Sodium Chloride 1,000 ml @ 150 mls/hr Q6H40M IV 10/03/16 22:09 10/05/16 09:01 (NS Flush) 2 ml UNSCH PRN IV FLUSH 10/03/16 22:15 (NS Flush) 2 ml BID IV FLUSH 10/04/16 09:00 10/04/16 21:00 (Zofran Inj) 4 mg Q6H PRN IVP 10/03/16 22:15 (Tylenol) 650 mg Q6H PRN PO 10/03/16 22:15 10/05/16 00:07 ([place] 5-325 Mg) 1 tab Q4H PRN PO 10/03/16 22:15 10/05/16 08:53 (Morphine Inj) 2 mg Q3H PRN IV 10/03/16 22:15 (Gladys-Colace) 1 tab BID PO 10/04/16 09:00 10/04/16 21:24 (Milk Of Magnesia Liq) 30 ml Q12H PRN PO 10/03/16 22:15 (Senokot) 17.2 mg Q12H PRN PO 10/03/16 22:15 (Dulcolax Supp) 10 mg DAILY PRN RECTAL 10/03/16 22:15 (Lactulose Liq) 30 ml DAILY PRN PO 10/03/16 22:15 (Vibramycin) 100 mg BID PO 10/04/16 21:00 10/05/16 08:53 Levofloxacin/ Dextrose 50 ml @ 50 mls/hr Q24H IV 10/05/16 18:00 A/P Assessment and Plan 1. SIRS: Fever at home up to 103.0, Temp 99.4, HR 110, WBC normal however significant bandemia 24%, Source-Unclear, Gastroenteritis?. S/p Blood/Stool Cultures. Start on empiric tx w/ Cipro/Flagyl IV. Recent travel to [facility], family member hospitalized in [place] for similar symptoms. 2. DALLIN: Creatinine Improving fast with IV fluids today. 3. Thrombocytopenia: Improving. 4. Elevated LFTs: Improving with supportive care. DVT Prophylaxis: SCD/Teds. Discharge Planning expected in one to two days. Chong Burgos MD Oct 05, 2016 11:14
[2016-10-05 11:59] LABS: AUTOMATED NEUTROPHIL # 6.9 TH/MM3 (1.8-7.7); BASOPHIL % 0.4 % (0.0-2.0); EOSINOPHIL # 0.1 TH/MM3 (0-0.4); EOSINOPHIL % 0.9 % (0.0-4.0); HEMATOCRIT 34.5 % (39.0-51.0); HEMO FLAGS DIFF FINAL; LYMPH % 5.3 % (9.0-44.0); LYMPHOCYTE # 0.4 TH/MM3 (1.0-4.8); MEAN CELL VOLUME 93.6 FL (80.0-100.0); MEAN CORPUSCULAR HGB CONC 34.1 % (32.0-36.0); MONO % 12.1 % (0.0-8.0); NEUT % 81.3 % (16.0-70.0); PLATELET COUNT 113 TH/MM3 (150-450); RED BLOOD COUNT 3.68 MIL/MM3 (4.50-5.90); RED CELL DISTRIBUTION WIDTH 13.4 % (11.6-17.2); RETIC % 0.3 % (0.4-3.0); REVIEW FLAG FINAL; WHITE BLOOD COUNT 8.5 TH/MM3 (4.0-11.0)
[2016-10-05 12:00] VITALS: BP 131/81; PULSE 96; RESP 16; TEMP 98.6; O2SAT 96
[2016-10-05 12:05] LABS: ALKALINE PHOSPHATASE 179 U/L (45-117); ALT (GPT) 150 U/L (12-78); ANION GAP 13 MEQ/L (5-15); AST (GOT) 86 U/L (15-37); BICARBONATE 20.2 MEQ/L (21.0-32.0); BLOOD UREA NITROGEN 29 MG/DL (7-18); CHLORIDE 104 MEQ/L (98-107); GLOMERULAR FILTRATION RATE 42 ML/MIN (>89); LDH SERUM 212 U/L (87-241); POTASSIUM 2.9 MEQ/L (3.5-5.1); SODIUM (NA) 137 MEQ/L (136-145); TOTAL BILIRUBIN ADULT 0.9 MG/DL (0.2-1.0)
[2016-10-05 12:30] LABS: WESTERGREN SEDIMENTATION RATE 72 mm/hr (0-15)
--- NOTE | 2016-10-05 13:46 | HHI.NPPN ---
Subjective History of Present Illness 40 year old WM with recent travel developed diarrhea, dehydration ARF, abnormal LFTS, low platelets Additional Remarks feels better Objective Data Data 10/05/16 10/06/16 19:00 07:00 Intake Total 1000 ml Balance 1000 ml IV Total 1000 ml Vital Signs Date Time Temp Pulse Resp B/P (MAP) Pulse Ox O2 Delivery O2 Flow Rate FiO2 10/05/16 12:00 98.6 96 16 131/81 (98) 96 10/05/16 08:00 98.8 99 16 119/70 (86) 97 10/05/16 04:00 98.3 91 18 137/81 (99) 97 10/05/16 00:00 99.7 99 18 134/69 (90) 97 10/04/16 23:29 104 10/04/16 20:00 102.4 106 18 109/70 (83) 97 10/04/16 16:00 101.1 112 17 113/61 (78) 96 -: 10/05/16 1040 10/05/16 1040 Microbiology 10/04/16 Cryptosporidium Exam - Final, Complete NEGATIVE - NO CRYPTOSPORIDIUM ANTIGEN... 10/04/16 Giardia Antigen (DESEAN) - Final, Complete NEGATIVE - NO GIARDIA ANTIGEN DETECTE... 10/04/16 - Final, Complete NO ENTERIC PATHOGENS DETECTED BY PCR... 10/05/16 Legionella Antigen - Final, Complete PRESUMPTIVE NEGATIVE FOR LEGIONELLA P... Physical Exam General Appearance: Well Developed, Well Nourished Neck Neck Exam: Neck Supple Pulmonary Resp Exam: Clear Bilaterally, Breath Sounds Equal Cardiology CV Exam: Regular, Normal Sinus Rhythm Gastrointestinal/Abdomen GI Exam: Soft, Non-Tender, Bowel Sounds Present Integumentary Skin Exam: Clear Extremeties Extremities Exam: No Edema Neurologic Neuro Exam: Alert, Awake Assessment/Plan Problem List: (1) DALLIN (acute kidney injury) ICD Codes: N17.9 - Acute kidney failure, unspecified Plan: He is doing well with hydration Reti count and LDH not elevated platelets improved with supportive care replace K ID Following Cr declined dehydration resolving Nephrology to see him on PRN bases (2) Fever ICD Codes: R50.9 - Fever, unspecified Status: Acute Plan: Continue supportive care (3) Thrombocytopenia ICD Codes: D69.6 - Thrombocytopenia, unspecified Plan: Likely infective etiology (4) Elevated LFTs ICD Codes: R79.89 - Other specified abnormal findings of blood chemistry Status: Acute Plan: Hepatitis screen is pending Problem Qualifiers (1) Fever: Qualified Codes: R50.9 - Fever, unspecified Matias Medina MD Oct 05, 2016 13:46
[2016-10-05] MEDS ORDERED: POTASSIUM CHLORIDE 10 MEQ CONTROLLED RELEASE TAB PO ONE (14:30)
[2016-10-05 16:00] VITALS: BP 128/87; PULSE 104; RESP 16; TEMP 100.4; O2SAT 98
[2016-10-05] MEDS ORDERED: POTASSIUM CHLORIDE 20 MEQ CONTROLLED RELEASE TAB PO ONE (17:00)
[2016-10-05] MEDS ORDERED: LEVOFLOXACIN/DEXTROSE 250 MG/50 ML IV SCH (18:00)
--- NOTE | 2016-10-05 18:44 | HHI.IDPN ---
Subjective Subjective Remarks Mr. Canchola is a 40-year-old male with past medical history significant for hypertension, herniated disc who recently traveled to [facility] between September 11, 2016 and September 19, 2016. While in [facility] patient was involved in many outdoor activities such as surfing, exploring the mountains , exploring the trails, Swimming in the water pools below waterfalls. He denies any history of animal bites. He reports having seen some monkeys but was not exposed to any of them. He denies any history of travel into caves. Patient reports he went on a family trip to [facility] and there were several kids ranging in age from 7-17, and about 6-7 adults. Patient reports that approximately some at least 7-8 people from his vacation trip all of these are family members ended up having diarrhea. Diarrhea resolved for most of them. He additionally reports that one of the family members is currently admitted at one of the [facility]. He believes that the physician for that family member has informed him that patient could have dengue. The patient at other hospital does not have any renal or liver function abnormalities. He goes on to report his girl friend has fevers and possibly diarrhea now. With this background patient now presents to the emergency department with complaints of fever, diarrhea for approximately 7 days. He reports a history of high-grade fevers associated with chills and rigors and periods of sweating. He reports that after a period of prolonged sweating his fevers do resolve. He reports aggressively hydrating himself with 2-3 gallons of water but despite that his urine is very yellow and at times very dark-colored. He denies any blood in the urine or any tea-colored urine. He reports taking Tylenol regularly. Patient reports about 7-8 times small amounts of diarrhea with no blood no tenesmus. He reports aches and pains as well as myalgia but denies any bone pain. He reports night sweats. He reports one episode where he had nausea and vomiting this was approximately one week back. He reports decreased appetite altered taste in the mouth. Denies any loss of weight. On arrival, BP 124/73, HR 110, O2 sat 98% on RA, Temp 99.4. WBC 8.1. Hemoglobin 13. Platelet 105, bandemia 24%. K+ 3.3. Creatinine 3.16, no previous labs for comparison. Lactic Acid 1.1. AST 170, ALT 187, ALP 210. Lipase 71. UA negative for UTI. CXR with no acute findings. S/p Blood/Stool Cultures in ER. At the time of my evaluation patient is currently on the floor. He had taken his shirt/top off because he had a profuse sweating episode a few minutes back. Otherwise patient appeared to be in no cardiopulmonary distress denied any pains. He did report periods of myalgia and high-grade fevers.He denies any bone pains. He denies any headache, retro-orbital pain or neck pain. Urine output is good. He continues to have large volume diarrhea. Travel: None in last 5 yrs prior to [facility] most recently. Medication use prior to admission: Tylenol 4-5 gm per day for 6 days. Dayquil 4 times a day for few days (Tylenol, Phenylephrine, Dextromethorphan) Pets: 2 dogs and 2 cats No yellow fever or other vaccines for [facility]. No typhoid vaccine or any other prophylaxis. Overnight events reviewed. Few low grade fevers otherwise temps normalizing. No N/V Diarrhea but fewer episodes and more formed. UO good. No rash Sitting in chair comfortable. Thinks he might be ready to go home in am. Antibiotics Doxy Levaquin flagyl Lines Line sites with no e.o infection Past Medical History reviewed Allergies: Coded Allergies: amoxicillin (Unverified Allergy, Mild, Hives, 10/03/16) Objective . Vital Signs Date Time Temp Pulse Resp B/P (MAP) Pulse Ox O2 Delivery O2 Flow Rate FiO2 10/05/16 16:00 100.4 104 16 128/87 (101) 98 10/05/16 12:00 98.6 96 16 131/81 (98) 96 10/05/16 08:00 98.8 99 16 119/70 (86) 97 10/05/16 04:00 98.3 91 18 137/81 (99) 97 10/05/16 00:00 99.7 99 18 134/69 (90) 97 10/04/16 23:29 104 10/04/16 20:00 102.4 106 18 109/70 (83) 97 10/05/16 10/05/16 10/06/16 15:00 23:00 07:00 Intake Total 1960 ml 150 ml Balance 1960 ml 150 ml Intake Oral 960 ml IV Total 1000 ml 150 ml # Voids 4 # Bowel Movements 3 . Laboratory Tests Test 10/03/16 21:01 10/04/16 06:00 10/05/16 10:40 White Blood Count 8.1 TH/MM3 7.4 TH/MM3 8.5 TH/MM3 Red Blood Count 4.18 MIL/MM3 4.11 MIL/MM3 3.68 MIL/MM3 Hemoglobin 13.0 GM/DL 13.1 GM/DL 11.8 GM/DL Hematocrit 38.7 % 39.0 % 34.5 % Mean Corpuscular Volume 92.5 FL 94.8 FL 93.6 FL Mean Corpuscular Hemoglobin 31.2 PG 31.8 PG 32.0 PG Mean Corpuscular Hemoglobin Concent 33.7 % 33.5 % 34.1 % Red Cell Distribution Width 13.5 % 13.4 % 13.4 % Platelet Count 105 TH/MM3 106 TH/MM3 113 TH/MM3 Mean Platelet Volume 8.7 FL 10.2 FL 9.1 FL CBC Comment AUTO DIFF DIFF FINAL DIFF FINAL Differential Total Cells Counted 100 Neutrophils % (Manual) 57 % Band Neutrophils % 24 % Lymphocytes % 9 % Monocytes % 8 % Eosinophils % 1 % Neutrophils # (Manual) 6.6 TH/MM3 Metamyelocytes 1 % Differential Comment FINAL DIFF MANUAL Toxic Granulation 1+ Toxic Vacuolation PRESENT Dohle Bodies PRESENT Platelet Estimate LOW Platelet Morphology Comment NORMAL Neutrophils (%) (Auto) 78.6 % 81.3 % Lymphocytes (%) (Auto) 4.2 % 5.3 % Monocytes (%) (Auto) 16.2 % 12.1 % Eosinophils (%) (Auto) 0.7 % 0.9 % Basophils (%) (Auto) 0.3 % 0.4 % Neutrophils # (Auto) 5.8 TH/MM3 6.9 TH/MM3 Lymphocytes # (Auto) 0.3 TH/MM3 0.4 TH/MM3 Monocytes # (Auto) 1.2 TH/MM3 1.0 TH/MM3 Eosinophils # (Auto) 0.0 TH/MM3 0.1 TH/MM3 Basophils # (Auto) 0.0 TH/MM3 0.0 TH/MM3 Blood Smear Pathologist Review Erythrocyte Sedimentation Rate 72 mm/hr Reticulocyte Count 0.3 % Absolute Reticulocyte Count 11.6 MIL/L Laboratory Tests Test 10/03/16 21:01 10/04/16 06:52 10/05/16 10:40 Blood Urea Nitrogen 32 MG/DL 32 MG/DL 29 MG/DL Creatinine 3.16 MG/DL 2.88 MG/DL 1.83 MG/DL Random Glucose 131 MG/DL 100 MG/DL 157 MG/DL Total Protein 7.1 GM/DL 6.9 GM/DL 6.1 GM/DL Albumin 2.8 GM/DL 2.6 GM/DL 2.1 GM/DL Calcium Level 8.3 MG/DL 8.0 MG/DL 8.1 MG/DL Alkaline Phosphatase 210 U/L 238 U/L 179 U/L Aspartate Amino Transf (AST/SGOT) 170 U/L 181 U/L 86 U/L Alanine Aminotransferase (ALT/SGPT) 187 U/L 192 U/L 150 U/L Total Bilirubin 0.8 MG/DL 1.4 MG/DL 0.9 MG/DL Sodium Level 128 MEQ/L 132 MEQ/L 137 MEQ/L Potassium Level 3.3 MEQ/L 3.5 MEQ/L 2.9 MEQ/L Chloride Level 94 MEQ/L 99 MEQ/L 104 MEQ/L Carbon Dioxide Level 24.5 MEQ/L 22.2 MEQ/L 20.2 MEQ/L Anion Gap 10 MEQ/L 11 MEQ/L 13 MEQ/L Estimat Glomerular Filtration Rate 22 ML/MIN 25 ML/MIN 42 ML/MIN Lactic Acid Level 1.1 mmol/L Lipase 71 U/L Total Creatine Kinase 101 U/L Lactate Dehydrogenase 212 U/L Microbiology Date/Time Source Procedure Growth Status 10/03/16 21:01 Blood Peripheral Aerobic Blood Culture - Preliminary NO GROWTH IN 2 DAYS Resulted 10/03/16 21:01 Blood Peripheral Anaerobic Blood Culture - Preliminary NO GROWTH IN 2 DAYS Resulted 10/03/16 19:50 Blood Peripheral Aerobic Blood Culture - Preliminary NO GROWTH IN 2 DAYS Resulted 10/03/16 19:50 Blood Peripheral Anaerobic Blood Culture - Preliminary NO GROWTH IN 2 DAYS Resulted 10/04/16 17:00 Stool Stool Cryptosporidium Exam - Final NEGATIVE - NO CRYPTOSPORIDIUM ANTIGEN... Complete 10/04/16 17:00 Stool Stool Giardia Antigen (DESEAN) - Final NEGATIVE - NO GIARDIA ANTIGEN DETECTE... Complete 10/04/16 17:00 Stool Stool - Final NO ENTERIC PATHOGENS DETECTED BY PCR... Complete 10/04/16 13:00 Stool Stool Cyclospora Exam Pending Resulted 10/04/16 13:00 Stool Stool Cryptosporidium Exam Pending Resulted 10/04/16 13:00 Stool Stool Stool Pus (DESEAN) - Final NO WBC'S SEEN Resulted 10/04/16 13:00 Stool Stool Giardia Antigen (DESEAN) Pending Resulted 10/04/16 13:00 Stool Stool Fungal Smear - Final Resulted 10/04/16 13:00 Stool Stool Fungal Culture - Preliminary Resulted 10/04/16 13:00 Stool Stool Rotavirus Antigen - Final NEGATIVE - ROTAVIRUS ANTIGEN IS ABSEN... Complete 10/03/16 21:01 Nasal Washing Influenza Types A,B Antigen (DESEAN) - Final NEGATIVE FOR FLU A AND B ANTIGEN.... Complete 10/05/16 08:06 Urine Random Urine Legionella Antigen - Final PRESUMPTIVE NEGATIVE FOR LEGIONELLA P... Complete Imaging Last Impressions Renal Ultrasound 10/04/16 0000 Signed Impressions: Service Date/Time: Tuesday, October 04, 2016 15:57 - CONCLUSION: Fatty infiltration of the liver. Normal evaluation of the kidneys and bladder. Juliette Castillo MD Chest X-Ray 10/03/162008 Signed Impressions: Service Date/Time: Monday, October 03, 2016 20:23 - CONCLUSION: No evidence of acute cardiopulmonary disease.Scoliosis. Lit Hall MD Physical Exam GENERAL: This is a well-nourished, well-developed patient, in no apparent distress. SKIN: No rashes, ecchymoses or lesions. Cool and dry. HEAD: Atraumatic. Normocephalic. No temporal or scalp tenderness. EYES: Pupils equal round and reactive. Extraocular motions intact. No scleral icterus. No injection or drainage. ENT: Nose without bleeding, purulent drainage or septal hematoma. Throat without erythema, tonsillar hypertrophy or exudate. Uvula midline. Airway patent. NECK: Trachea midline. No JVD or lymphadenopathy. Supple, nontender, no meningeal signs. CARDIOVASCULAR: Regular rate and rhythm without murmurs, gallops, or rubs. RESPIRATORY: Clear to auscultation. Breath sounds equal bilaterally. No wheezes , rales, or rhonchi. GASTROINTESTINAL: Abdomen soft, non-tender, nondistended. MUSCULOSKELETAL: Extremities without clubbing, cyanosis, or edema. No joint tenderness, effusion, or edema noted. No calf tenderness. Negative Homans sign bilaterally. NEUROLOGICAL: Awake and alert. Cranial nerves II through XII intact. Motor and sensory grossly within normal limits. Five out of 5 muscle strength in all muscle groups. Normal speech. Psych: pleasant IV line sites with no e.o infection. Assessment & Plan Remarks SIRS possible Sepsis (fever, tachycardia) source: Infectious Diarrhea/ Enterocolitis. DDx: 1. Bacterial: Enteric pathogens (E.coli Enterotoxigenic, E.coli 0157. R/o HUS, Other pathogens like Shigella, Campylobacter, salmonella,etc). Legionnaire's disease. Leptospirosis. 2. Viral: Dengue, Yellow fever, Zika, acute HIV. 3. Parasites: Malaria. 4. Tick borne diseases: Rickettsial diseases (RMSF, RMNSF, Ehrlichiosis) Acute renal failure: Prerenal, Sepsis, as part of an infectious disease syndrome such as Lepto or Legionella Abnormal Liver function tests: Tylenol toxicity or as part of an ID syndrome. Hyponatremia: metabolic, as part of an ID syndrome (Legionella) Acute thrombocytopenia (in absence of anemia and schistocytes): less likely to be HUS/MAHA. May be as part of Infectious Disease Syndromes. Diarrhea: Travellers diarrhea or part of other ID syndromes. Recs Will d.w Health dept in am to see if Zika testing required for public health purposes. Continue Levaquin (covers travellers diarrhea and Legionnaire's disease) change to oral. Continue Flagyl change to oral. Continue Doxy to assess response for Rickettsial diseases. Follow stool studies: Enteric pathogens are negative Tylenol level is normal but abnormal LFTs still could be from possible tylenol excessive use 2-3 gm/day over last 7 days. Peripheral smear to be reviewed by pathologist. Follow WnV testing. Follow Legionella urine Ag and IgG and IgM (Hyponatremia, ARF, Abnormal LFTs r/ o Legionnaire's disease) Cdiff tested and negative. If continues to do well possible discharge tomorrow after clinical follow up, health dept discussions for Zika etc. Denisse Moore MD Oct 05, 2016 18:44
[2016-10-05] MEDS: metroNIDAZOLE 500 MG TAB PO SCH (20:57)
[2016-10-05 23:09] VITALS: PULSE 98
[2016-10-06] VITALS: BP 131/76; PULSE 81; RESP 18; TEMP 98.7; O2SAT 95
[2016-10-06 04:00] VITALS: BP 122/71; PULSE 88; RESP 18; TEMP 98.4; O2SAT 95
[2016-10-06] MEDS: ACETAMINOPHEN/HYDROcodone 325 MG/5 MG TAB PO PRN (04:37)
[2016-10-06] MEDS: metroNIDAZOLE 500 MG TAB PO SCH ×2 (04:37→13:59)
[2016-10-06] MEDS: SODIUM CHLOR 0.9% 1000 ML INJ 1,000 ML IV SCH ×2 (04:42→14:00)
[2016-10-06 07:59] LABS: BICARBONATE 21.7 MEQ/L (21.0-32.0); POTASSIUM 3.2 MEQ/L (3.5-5.1)
[2016-10-06 08:00] VITALS: PULSE 92
[2016-10-06 08:36] VITALS: BP 119/85; PULSE 76; RESP 16; TEMP 98.2; O2SAT 98
[2016-10-06] MEDS: DOCUSATE SODIUM 50 MG/SENNA 8.6 MG TAB PO SCH (09:00)
--- NOTE | 2016-10-06 10:01 | HHI.PR ---
Subjective Remarks This is a 40-year-old male with PMH of HTN who presented to the ER with complaints of fever and intermittent nausea, vomiting and diarrhea for approx 6 days. States he went on a family trip to [facility] 2wks ago, returned home feeling fine however 8 days after arrival had sudden onset of episodic fever, states fever occurring every 5-6hrs despite taking Tylenol. Reports night sweats. Few episodes of nausea/vomiting at start of symptoms, now resolved. Reports multiple episodes of small amount of diarrhea per day, non-bloody. Decreased PO intake. Of note, family member who went to [facility] with him currently hospitalized in [place] for similar symptoms. On arrival, BP 124/73, HR 110, O2 sat 98% on RA, Temp 99.4. WBC 8.1. Hemoglobin 13. Platelet 105, bandemia 24%. K+ 3.3. Creatinine 3.16, no previous labs for comparison. Lactic Acid 1.1. AST 170, ALT 187, ALP 210. Lipase 71. UA negative for UTI. CXR with no acute findings. S/p Blood/Stool Cultures in ER. 10/04: Seen in his bedroom, slight decrease in Creatinine with IV fluids, asked for Renal Ultrasound and Nephrology specialist consult, discussed with ID specialist Doctor Denisse Moore she was concerned due to Thrombocytopenia and increased Liver enzymes, she discussed with media specialist but considered to wait and follow Platelet count in am tomorrow, he continue with Diarrhea asked for C Diff and Stool for ova and parasites. 10/05: Seen in the presence of his Mrs. Phillips, he is stable and improving on his renal function, had fever yesterday still not identified the Pathogen, but he is improving with supportive care. Nephrology and ID specialist following. Platelet count Improving. 10/06: stable in his bedroom, improving his condition, ID specialist following, no nausea, or vomit, had 4 BMs today Objective Vital Signs Date Time Temp Pulse Resp B/P (MAP) Pulse Ox O2 Delivery O2 Flow Rate FiO2 10/06/16 08:36 98.2 76 16 119/85 (96) 98 10/06/16 04:00 98.4 88 18 122/71 (88) 95 10/06/16 00:00 98.7 81 18 131/76 (94) 95 10/05/16 23:09 98 10/05/16 16:00 100.4 104 16 128/87 (101) 98 10/05/16 12:00 98.6 96 16 131/81 (98) 96 I/O 10/05/16 10/05/16 10/05/16 10/06/16 10/06/16 10/06/16 06:59 14:59 22:59 06:59 14:59 22:59 Intake Total 1960 ml 150 ml 1223 ml Balance 1960 ml 150 ml 1223 ml Intake Oral 960 ml IV Total 1000 ml 150 ml 1223 ml # Voids 5 4 # Bowel Movements 3 Result Diagram: 10/05/16 1040 10/06/16 0556 Imaging Last Impressions Renal Ultrasound 10/04/16 0000 Signed Impressions: Service Date/Time: Tuesday, October 04, 2016 15:57 - CONCLUSION: Fatty infiltration of the liver. Normal evaluation of the kidneys and bladder. Juliette Castillo MD Chest X-Ray 10/03/162008 Signed Impressions: Service Date/Time: Monday, October 03, 2016 20:23 - CONCLUSION: No evidence of acute cardiopulmonary disease.Scoliosis. Lit Hall MD Procedures None Other Results Laboratory Tests Test 10/03/16 21:01 10/03/16 21:20 10/04/16 06:00 10/04/16 06:52 Differential Total Cells Counted 100 Neutrophils % (Manual) 57 % Band Neutrophils % 24 % Lymphocytes % 9 % Monocytes % 8 % Eosinophils % 1 % Neutrophils # (Manual) 6.6 TH/MM3 Metamyelocytes 1 % Toxic Granulation 1+ Toxic Vacuolation PRESENT Dohle Bodies PRESENT Platelet Estimate LOW Platelet Morphology Comment NORMAL Lactic Acid Level 1.1 mmol/L Lipase 71 U/L Urine Color YELLOW Urine Turbidity CLOUDY Urine pH 5.5 Urine Specific [place] 1.013 Urine Protein 100 mg/dL Urine Glucose (UA) NEG mg/dL Urine Ketones NEG mg/dL Urine Occult Blood SMALL Urine Nitrite NEG Urine Bilirubin NEG Urine Urobilinogen LESS THAN 2.0 MG/DL Urine Leukocyte Esterase NEG Urine RBC 1 /hpf Urine WBC 6 /hpf Urine Amorphous Sediment RARE Microscopic Urinalysis Comment CATH-CULT NOT IND Blood Smear Pathologist Review Total Creatine Kinase 101 U/L Test 10/04/16 11:24 10/04/16 13:00 10/04/16 19:00 10/05/16 10:40 Eosinophil Stool Smear NONE SEEN /HPF Stool C. difficile Toxin (PCR) NEGATIVE Stl C. difficile Toxin Epiderm 027 PRESUMPTIVE NEGATIVE Acetaminophen Level LESS THAN 2.0 MCG/ML White Blood Count 8.5 TH/MM3 Red Blood Count 3.68 MIL/MM3 Hemoglobin 11.8 GM/DL Hematocrit 34.5 % Mean Corpuscular Volume 93.6 FL Mean Corpuscular Hemoglobin 32.0 PG Mean Corpuscular Hemoglobin Concent 34.1 % Red Cell Distribution Width 13.4 % Platelet Count 113 TH/MM3 Mean Platelet Volume 9.1 FL Neutrophils (%) (Auto) 81.3 % Lymphocytes (%) (Auto) 5.3 % Monocytes (%) (Auto) 12.1 % Eosinophils (%) (Auto) 0.9 % Basophils (%) (Auto) 0.4 % Neutrophils # (Auto) 6.9 TH/MM3 Lymphocytes # (Auto) 0.4 TH/MM3 Monocytes # (Auto) 1.0 TH/MM3 Eosinophils # (Auto) 0.1 TH/MM3 Basophils # (Auto) 0.0 TH/MM3 CBC Comment DIFF FINAL Differential Comment Erythrocyte Sedimentation Rate 72 mm/hr Reticulocyte Count 0.3 % Absolute Reticulocyte Count 11.6 MIL/L Blood Urea Nitrogen 29 MG/DL Creatinine 1.83 MG/DL Random Glucose 157 MG/DL Total Protein 6.1 GM/DL Albumin 2.1 GM/DL Calcium Level 8.1 MG/DL Alkaline Phosphatase 179 U/L Aspartate Amino Transf (AST/SGOT) 86 U/L Alanine Aminotransferase (ALT/SGPT) 150 U/L Lactate Dehydrogenase 212 U/L Total Bilirubin 0.9 MG/DL Sodium Level 137 MEQ/L Potassium Level 2.9 MEQ/L Chloride Level 104 MEQ/L Carbon Dioxide Level 20.2 MEQ/L Test 10/05/16 18:45 10/06/16 05:56 Magnesium Level 1.6 MG/DL Blood Urea Nitrogen 17 MG/DL Creatinine 1.21 MG/DL Random Glucose 110 MG/DL Calcium Level 7.9 MG/DL Sodium Level 139 MEQ/L Potassium Level 3.2 MEQ/L Chloride Level 108 MEQ/L Carbon Dioxide Level 21.7 MEQ/L Anion Gap 9 MEQ/L Estimat Glomerular Filtration Rate 67 ML/MIN Objective Remarks PE: No acute distress. GENERAL: Very pleasant young white male in no acute distress. at bedside. HEENT: PERRLA, EOMI. No scleral icterus or conjunctival pallor. No lid lag or facial droop. CARDIOVASCULAR: Regular rate and rhythm. No obvious murmurs to auscultation. No chest tenderness to palpation. RESPIRATORY: No obvious rhonchi or wheezing. Clear to auscultation. Breath sounds equal bilaterally. GASTROINTESTINAL: Abdomen soft, non-tender, nondistended. BS normal. MUSCULOSKELETAL: Extremities without clubbing, cyanosis, or edema. No obvious deformities. NEUROLOGICAL: Awake, alert and oriented x4. No focal neurologic deficits. Moving both upper and lower extremities spontaneously. Medications and IVs Current Medications Medications (Trade) Dose Ordered Sig/Néstor Route Start Time Stop Time Status Last Admin Sodium Chloride 1,000 ml @ 150 mls/hr Q6H40M IV 10/03/16 22:09 10/06/16 04:42 (NS Flush) 2 ml UNSCH PRN IV FLUSH 10/03/16 22:15 (NS Flush) 2 ml BID IV FLUSH 10/04/16 09:00 10/05/16 20:56 (Zofran Inj) 4 mg Q6H PRN IVP 10/03/16 22:15 (Tylenol) 650 mg Q6H PRN PO 10/03/16 22:15 10/05/16 16:14 (Centre 5-325 Mg) 1 tab Q4H PRN PO 10/03/16 22:15 10/06/16 04:37 (Morphine Inj) 2 mg Q3H PRN IV 10/03/16 22:15 (Gladys-Colace) 1 tab BID PO 10/04/16 09:00 10/04/16 21:24 (Milk Of Magnesia Liq) 30 ml Q12H PRN PO 10/03/16 22:15 (Senokot) 17.2 mg Q12H PRN PO 10/03/16 22:15 (Dulcolax Supp) 10 mg DAILY PRN RECTAL 10/03/16 22:15 (Lactulose Liq) 30 ml DAILY PRN PO 10/03/16 22:15 (Vibramycin) 100 mg BID PO 10/04/16 21:00 10/05/16 21:00 (Levaquin) 500 mg DAILY@1100 PO 10/06/16 11:00 (Flagyl) 500 mg Q8HR PO 10/05/16 22:00 10/06/16 04:37 A/P Assessment and Plan 1. SIRS: Fever at home up to 103.0, Temp 99.4, HR 110, WBC normal however significant bandemia 24%, Source-Unclear, Gastroenteritis?. S/p Blood/Stool Cultures. ID recommended to continue Levaquin, Flagyl and Doxy and following recommendations. 2. DALLIN: Improved. 3. Thrombocytopenia: Improving. 4. Elevated LFTs: Improving with supportive care. DVT Prophylaxis: SCD/Teds. Discharge Planning Expected in am tomorrow. Chong Burgos MD Oct 06, 2016 10:01
[2016-10-06] MEDS: DOXYCYCLINE HYCLATE 100 MG CAP PO SCH (10:06)
[2016-10-06] MEDS: SODIUM CHLORIDE 0.9% FLUSH 10 ML FLUSH IV FLUSH SCH (10:07)
[2016-10-06] MEDS ORDERED: POTASSIUM CHLORIDE 20 MEQ CONTROLLED RELEASE TAB PO ONE ×2 (10:15→13:00)
[2016-10-06] MEDS ORDERED: LEVOFLOXACIN 500 MG TAB PO SCH (11:00)
[2016-10-06 13:34] VITALS: BP 119/79; PULSE 85; RESP 20; TEMP 97.6; O2SAT 100
[2016-10-06] MEDS ORDERED: LEVA500T20 PO (15:54)
[2016-10-06] MEDS ORDERED: DOXY100C PO (15:55)
[2016-10-06] MEDS ORDERED: METR-1 PO (15:55)
--- NOTE | 2016-10-06 16:00 | HHI.DS ---
Discharge Summary Admission Date Oct 03, 2016 at 22:12 Discharge Date: Oct 06, 2016 Admitting Diagnosis acute kidney failure, elevated LFTs, viral illness (1) SIRS (systemic inflammatory response syndrome) ICD Code: R65.10 - Systemic inflammatory response syndrome (SIRS) of non- infectious origin without acute organ dysfunction Diagnosis: Principal (2) Gastroenteritis ICD Code: K52.9 - Noninfective gastroenteritis and colitis, unspecified Diagnosis: Principal (3) DALLIN (acute kidney injury) ICD Code: N17.9 - Acute kidney failure, unspecified Diagnosis: Principal (4) Thrombocytopenia ICD Code: D69.6 - Thrombocytopenia, unspecified Diagnosis: Principal (5) Elevated LFTs ICD Code: R79.89 - Other specified abnormal findings of blood chemistry Diagnosis: Principal Status: Acute Procedures None Brief History - From Admission This is a 40-year-old male with PMH of HTN who presented to the ER with complaints of fever and intermittent nausea, vomiting and diarrhea for approx 6 days. States he went on a family trip to [facility] 2wks ago, returned home feeling fine however 8 days after arrival had sudden onset of episodic fever, states fever occurring every 5-6hrs despite taking Tylenol. Reports night sweats. Few episodes of nausea/vomiting at start of symptoms, now resolved. Reports multiple episodes of small amount of diarrhea per day, non-bloody. Decreased PO intake. Of note, family member who went to [facility] with him currently hospitalized in [place] for similar symptoms. On arrival, BP 124/73, HR 110, O2 sat 98% on RA, Temp 99.4. WBC 8.1. Hemoglobin 13. Platelet 105, bandemia 24%. K+ 3.3. Creatinine 3.16, no previous labs for comparison. Lactic Acid 1.1. AST 170, ALT 187, ALP 210. Lipase 71. UA negative for UTI. CXR with no acute findings. S/p Blood/Stool Cultures in ER. CBC/BMP: 10/05/16 1040 10/06/16 0556 Significant Findings Laboratory Tests Test 10/03/16 21:01 10/03/16 21:20 10/04/16 06:00 10/04/16 06:52 Red Blood Count 4.18 MIL/MM3 (4.50-5.90) 4.11 MIL/MM3 (4.50-5.90) Hematocrit 38.7 % (39.0-51.0) Platelet Count 105 TH/MM3 (150-450) 106 TH/MM3 (150-450) Band Neutrophils % 24 % (0-6) Toxic Granulation 1+ (NORMAL) Toxic Vacuolation PRESENT (NONE SEEN) Dohle Bodies PRESENT (NONE SEEN) Platelet Estimate LOW (NORMAL) Blood Urea Nitrogen 32 MG/DL (7-18) 32 MG/DL (7-18) Creatinine 3.16 MG/DL (0.60-1.30) 2.88 MG/DL (0.60-1.30) Random Glucose 131 MG/DL (74-106) Albumin 2.8 GM/DL (3.4-5.0) 2.6 GM/DL (3.4-5.0) Calcium Level 8.3 MG/DL (8.5-10.1) 8.0 MG/DL (8.5-10.1) Alkaline Phosphatase 210 U/L (45-117) 238 U/L (45-117) Aspartate Amino Transf (AST/SGOT) 170 U/L (15-37) 181 U/L (15-37) Alanine Aminotransferase (ALT/SGPT) 187 U/L (12-78) 192 U/L (12-78) Sodium Level 128 MEQ/L (136-145) 132 MEQ/L (136-145) Potassium Level 3.3 MEQ/L (3.5-5.1) Chloride Level 94 MEQ/L (98-107) Estimat Glomerular Filtration Rate 22 ML/MIN (>89) 25 ML/MIN (>89) Lipase 71 U/L (73-393) Urine Turbidity CLOUDY (CLEAR) Urine Protein 100 mg/dL (NEG-TRACE) Urine Occult Blood SMALL (NEG) Urine WBC 6 /hpf (0-5) Neutrophils (%) (Auto) 78.6 % (16.0-70.0) Lymphocytes (%) (Auto) 4.2 % (9.0-44.0) Monocytes (%) (Auto) 16.2 % (0.0-8.0) Lymphocytes # (Auto) 0.3 TH/MM3 (1.0-4.8) Monocytes # (Auto) 1.2 TH/MM3 (0-0.9) Total Bilirubin 1.4 MG/DL (0.2-1.0) Test 10/04/16 11:24 10/04/16 13:00 10/04/16 19:00 10/05/16 10:40 Acetaminophen Level LESS THAN 2.0 MCG/ML Red Blood Count 3.68 MIL/MM3 (4.50-5.90) Hemoglobin 11.8 GM/DL (13.0-17.0) Hematocrit 34.5 % (39.0-51.0) Platelet Count 113 TH/MM3 (150-450) Neutrophils (%) (Auto) 81.3 % (16.0-70.0) Lymphocytes (%) (Auto) 5.3 % (9.0-44.0) Monocytes (%) (Auto) 12.1 % (0.0-8.0) Lymphocytes # (Auto) 0.4 TH/MM3 (1.0-4.8) Monocytes # (Auto) 1.0 TH/MM3 (0-0.9) Erythrocyte Sedimentation Rate 72 mm/hr (0-15) Reticulocyte Count 0.3 % (0.4-3.0) Absolute Reticulocyte Count 11.6 MIL/L (20.0-150.0) Blood Urea Nitrogen 29 MG/DL (7-18) Creatinine 1.83 MG/DL (0.60-1.30) Random Glucose 157 MG/DL (74-106) Total Protein 6.1 GM/DL (6.4-8.2) Albumin 2.1 GM/DL (3.4-5.0) Calcium Level 8.1 MG/DL (8.5-10.1) Alkaline Phosphatase 179 U/L (45-117) Aspartate Amino Transf (AST/SGOT) 86 U/L (15-37) Alanine Aminotransferase (ALT/SGPT) 150 U/L (12-78) Potassium Level 2.9 MEQ/L (3.5-5.1) Carbon Dioxide Level 20.2 MEQ/L (21.0-32.0) Estimat Glomerular Filtration Rate 42 ML/MIN (>89) Test 10/05/16 18:45 10/06/16 05:56 Random Glucose 110 MG/DL (74-106) Calcium Level 7.9 MG/DL (8.5-10.1) Potassium Level 3.2 MEQ/L (3.5-5.1) Chloride Level 108 MEQ/L (98-107) Estimat Glomerular Filtration Rate 67 ML/MIN (>89) Imaging Last Impressions Renal Ultrasound 10/04/16 0000 Signed Impressions: Service Date/Time: Tuesday, October 04, 2016 15:57 - CONCLUSION: Fatty infiltration of the liver. Normal evaluation of the kidneys and bladder. Juliette Castillo MD Chest X-Ray 10/03/162008 Signed Impressions: Service Date/Time: Monday, October 03, 2016 20:23 - CONCLUSION: No evidence of acute cardiopulmonary disease.Scoliosis. Lit Hall MD PE at Discharge PE: No acute distress. GENERAL: Very pleasant young white male in no acute distress. at bedside. HEENT: PERRLA, EOMI. No scleral icterus or conjunctival pallor. No lid lag or facial droop. CARDIOVASCULAR: Regular rate and rhythm. No obvious murmurs to auscultation. No chest tenderness to palpation. RESPIRATORY: No obvious rhonchi or wheezing. Clear to auscultation. Breath sounds equal bilaterally. GASTROINTESTINAL: Abdomen soft, non-tender, nondistended. BS normal. MUSCULOSKELETAL: Extremities without clubbing, cyanosis, or edema. No obvious deformities. NEUROLOGICAL: Awake, alert and oriented x4. No focal neurologic deficits. Moving both upper and lower extremities spontaneously. Hospital Course This is a 40-year-old male with PMH of HTN who presented to the ER with complaints of fever and intermittent nausea, vomiting and diarrhea for approx 6 days. States he went on a family trip to [facility] 2wks ago, returned home feeling fine however 8 days after arrival had sudden onset of episodic fever, states fever occurring every 5-6hrs despite taking Tylenol. Reports night sweats. Few episodes of nausea/vomiting at start of symptoms, now resolved. Reports multiple episodes of small amount of diarrhea per day, non-bloody. Decreased PO intake. Of note, family member who went to [facility] with him currently hospitalized in [place] for similar symptoms. On arrival, BP 124/73, HR 110, O2 sat 98% on RA, Temp 99.4. WBC 8.1. Hemoglobin 13. Platelet 105, bandemia 24%. K+ 3.3. Creatinine 3.16, no previous labs for comparison. Lactic Acid 1.1. AST 170, ALT 187, ALP 210. Lipase 71. UA negative for UTI. CXR with no acute findings. S/p Blood/Stool Cultures in ER. 10/04: Seen in his bedroom, slight decrease in Creatinine with IV fluids, asked for Renal Ultrasound and Nephrology specialist consult, discussed with ID specialist Doctor Denisse Moore she was concerned due to Thrombocytopenia and increased Liver enzymes, she discussed with methods specialist but considered to wait and follow Platelet count in am tomorrow, he continue with Diarrhea asked for C Diff and Stool for ova and parasites. 10/05: Seen in the presence of his Mrs. Phillips, he is stable and improving on his renal function, had fever yesterday still not identified the Pathogen, but he is improving with supportive care. Nephrology and ID specialist following. Platelet count Improving. 10/06: stable in his bedroom, improving his condition, ID specialist following, no nausea, or vomit, had 4 BMs today Assessment and Plan 1. SIRS: Fever at home up to 103.0, Temp 99.4, HR 110, WBC normal however significant bandemia 24%, Source-Unclear, Gastroenteritis?. S/p Blood/Stool Cultures. ID recommended to continue Levaquin, Flagyl and Doxy, Discussed with Doctor Denisse Moore ID specialist recommended to take the Zika test already indicated and discussed with Nurse to discharge the patient only once the Zika test is taken also to continue antibiotics, Levaquin 500 mg daily for seven days Doxycycline 100 mg BID for seven days Metronidazole 500 mg TID for seven days and Follow with Doctor Monalisa Negrete Infectious disease specialist in seven days. 2. DALLIN: Improved. 3. Thrombocytopenia: Improving. 4. Elevated LFTs: Improving with supportive care. 5. Hypertension controlled. DVT Prophylaxis: SCD/Teds. Discharge Planning Discharge Home now. Pt Condition on Discharge: Good Discharge Disposition: Discharge Home Discharge Time: <= 30 minutes Discharge Instructions DIET: Follow Instructions for: As Tolerated, No Restrictions Activities you can perform: Regular-No Restrictions Chong Burgos MD Oct 06, 2016 16:00
[2016-10-06 16:22] VITALS: BP 118/72; PULSE 85; RESP 20; TEMP 97.7; O2SAT 98
[2016-10-09 17:54] LABS: WEST NILE IGM <0.90
[2016-10-12 23:53] LABS: LEGIONELLA PNEUMO 1 IGG <1:64 titer (< 1:64); LEGIONELLA PNEUMO 1 IGM <1:64 titer (< 1:64); LEGIONELLA PNEUMO 2 IGG <1:64 titer (< 1:64); LEGIONELLA PNEUMO 2 IGM <1:64 titer (< 1:64); LEGIONELLA PNEUMO 3 IGG <1:64 titer (< 1:64); LEGIONELLA PNEUMO 3 IGM <1:64 titer (< 1:64); LEGIONELLA PNEUMO 4 IGG <1:64 titer (< 1:64); LEGIONELLA PNEUMO 4 IGM <1:64 titer (< 1:64); LEGIONELLA PNEUMO 5 IGG <1:64 titer (< 1:64); LEGIONELLA PNEUMO 5 IGM <1:64 titer (< 1:64); LEGIONELLA PNEUMO 6 IGG <1:64 titer (< 1:64); LEGIONELLA PNEUMO 6 IGM <1:64 titer (< 1:64)
== END 2016-10-06 18:29 | disposition home or self-care (01) | DRG 872 ==
LOC: NEPE 15:31 → NEDA 22:12 → N05A 10-04 01:30
PROVIDERS: ADMIT Internal Medicine; ATTEND Internal Medicine
DX: R65.11 Systemic inflammatory response syndrome (SIRS) of non-infectious origin with acute organ dysfunction (principal); N17.9 Acute kidney failure, unspecified; D69.6 Thrombocytopenia, unspecified; E87.1 Hypo-osmolality and hyponatremia; E86.0 Dehydration; K52.9 Noninfective gastroenteritis and colitis, unspecified; I10 Essential (primary) hypertension; Z88.0 Allergy status to penicillin
CPT/HCPCS: 71010; 76775; 80048; 80053; 80074; 80307; 81001; 82550; 83605; 83615; 83690; 83735; 85007; 85025; 85027; 85044; 85060; 85652; 86713; 86753; 86788; 87015; 87040; 87102; 87116; 87205; 87206; 87207; 87328; 87329; 87425; 87449; 87493; 87506; 87798; 87804; 96361; 96374; J0744; J1885; J1956; J7030